=== PATIENT | male | born 1945 ===

== ENCOUNTER 2017-01-22 11:11 | Emergency (ER) | payer MEDICARE, OTHER, BC ==
[2017-01-22 11:24] VITALS: BMI 34.9
[2017-01-22 11:25] VITALS: O2SAT 99
[2017-01-22 11:53] LABS: BASO % 0.8 % (0.0-2.0); EOS # 0.2 K/uL (0.0-0.7); EOS % 3.6 % (0.0-4.0); HEMATOCRIT 28.5 % (35.0-51.0); LYMPH % 15.7 % (20.0-40.0); MEAN CORPUSCULAR HEMOGLOBIN 23.6 pg (27.0-31.0); MEAN CORPUSCULAR HGB CONC 31.9 g/dL (33.0-37.0); MONO # 0.6 K/uL (0.0-0.8); MONO % 8.8 % (0.0-10.0); RED CELL DISTRIBUTION WIDTH 16.9 % (11.5-14.5); WHITE BLOOD COUNT 6.3 K/uL (4.8-10.8)
--- NOTE | 2017-01-22 11:57 | RAD ---
HISTORY: cp COMPARISON: 02/21/2016 FINDINGS: LUNGS: No active pulmonary disease. PLEURA: No significant pleural effusion identified, no pneumothorax apparent. CARDIOVASCULAR: Normal. OSSEOUS STRUCTURES: No significant abnormalities. VISUALIZED UPPER ABDOMEN: Normal. OTHER FINDINGS: None. IMPRESSION: No active disease.
[2017-01-22 12:01] LABS: CHLORIDE 100 mmol/L (98-107)
[2017-01-22 12:02] LABS: POTASSIUM 4.2 mmol/L (3.6-5.2); SODIUM 135 mmol/L (132-148)
[2017-01-22 12:04] LABS: ALB/GLOB RATIO 1.2 (1.0-2.1); ALKALINE PHOSPHATASE 63 U/L (38-126); AST/SGOT 20 U/L (17-59); BILIRUBIN,TOTAL 0.5 mg/dL (0.2-1.3); BLOOD UREA NITROGEN 15 mg/dL (9-20); CARBON DIOXIDE 26 mmol/L (22-30); GFR AFRICAN-AMERICAN > 60; GLUCOSE,RANDOM 221 mg/dL (75-110); TOTAL PROTEIN 6.9 g/dL (6.3-8.3)
[2017-01-22 12:05] LABS: ALT/SGPT 21 U/L (21-72); CALCIUM 8.4 mg/dl (8.6-10.4)
--- NOTE | 2017-01-22 12:56 | C.PDOC ---
History Of Present Illness 71 y/o male presents to the ED with complains of pain to chest area since yesterday. Pt reports bending over yesterday around 1100 and felt a pull in his chest, he has had pain ever since, worse with any movement or coughing. Pt has had dry cough x1 week due to "itchy throat." Has not taken any medications. Denies SOB or any other complaints. Time Seen by Provider: 01/22/17 11:24 Chief Complaint (Nursing): Cough, Cold, Congestion History Per: Patient History/Exam Limitations: no limitations Onset/Duration Of Symptoms: Hrs Current Symptoms Are (Timing): Still Present Severity: Moderate Recent travel outside of the [place]: No Past Medical History Reviewed: Historical Data, Nursing Documentation, Vital Signs Vital Signs: Last Vital Signs Temp 98.8 F 01/22/17 11:24 Pulse 74 01/22/17 11:24 Resp 20 01/22/17 11:24 BP 114/70 01/22/17 11:24 Pulse Ox 99 01/22/17 13:05 - Medical History PMH: CAD, Hiatal Hernia, HTN, Hypercholesterolemia Surgical History: Coronary Stent (PTCA/stent x4) - [facility] Procedures CORONAR ARTERIOGR-2 CATH (01/06/13) INSERTION OF ONE VASCULAR STENT (01/06/13) INSRT OF DRUG-ELUTING CORON ARTERY STENTS(S) (01/06/13) LT HEART ANGIOCARDIOGRAM (01/06/13) PERCUTANEOUS TRANSLUMINAL CORONARY ANGIOPLASTY [PTCA] (01/06/13) PROCEDURE ON SINGLE VESSEL (01/06/13) RT/LEFT HEART CARD CATH (01/06/13) Family History: States: Unknown Family Hx - Social History Hx Alcohol Use: Yes Hx Substance Use: No - Immunization History Hx Tetanus Toxoid Vaccination: No Hx Influenza Vaccination: Yes (05/2015) Hx Pneumococcal Vaccination: No Review Of Systems Except As Marked, All Systems Reviewed And Found Negative. Constitutional: Negative for: Fever Cardiovascular: Positive for: Other (pain to chest area) Respiratory: Positive for: Cough. Negative for: Shortness of Breath Gastrointestinal: Negative for: Vomiting Physical Exam - Physical Exam Appears: Non-toxic, No Acute Distress Skin: Warm, Dry, No Rash Head: Atraumatic, Normacephalic Chest: Symmetrical, Tenderness (lower sternum and zyphoid) Cardiovascular: Rhythm Regular, No Murmur Respiratory: Normal Breath Sounds, No Rales, No Rhonchi, No Wheezing Gastrointestinal/Abdominal: Normal Exam, Soft, No Tenderness Extremity: Normal ROM Extremity: Bilateral: Atraumatic Neurological/Psych: Oriented x3, Normal Speech, Normal Motor, Normal Sensation ED Course And Treatment - Laboratory Results Result Diagrams: 01/22/17 11:49 01/22/17 11:49 ECG: Interpreted By Me, Viewed By Me ECG Rhythm: Sinus Rhythm ECG Interpretation: Normal Interpretation Of ECG: normal axis intervals, no acute ischemia Rate From EC (BPM) O2 Sat by Pulse Oximetry: 99 (room air) Pulse Ox Interpretation: Normal - Other Rad CXR X-Ray: Viewed By Me, Read By Radiologist Interpretation: Accession No. : [id number]. Patient Name / ID : PARISH BELTRAN / [id number]. Exam Date : 01/22/2017 11:38:20 ( Approved ). Study Comment : Sex / Age : M / 71Y. Creator : Trever Weber MD. Dictator : Trever Weber MD. Director Distribution : Administrative Operations Coordinator : Trever Weber MD. Approver2 : Report Date : 01/22/2017 11:56:12. My Comment : . HISTORY: cp. COMPARISON: 02/21/2016. FINDINGS: LUNGS: No active pulmonary disease. PLEURA : No significant pleural effusion identified, no pneumothorax apparent. CARDIOVASCULAR: Normal. OSSEOUS STRUCTURES: No significant abnormalities. VISUALIZED UPPER ABDOMEN: Normal. OTHER FINDINGS: None. IMPRESSION: No active disease. Medical Decision Making Medical Decision Making: Discussed case with patient's safety clothing and equipment developer Dr Shi who can see patient in 1- 3 days for follow up. Disposition - Disposition Referrals: Doris Shi MD [Staff Provider] - Disposition: HOME/ ROUTINE Disposition Time: 13:30 Condition: GOOD Additional Instructions: Please follow up with Dr Shi next week. Return to the ER for any worsening symptoms or for any other concerns. Prescriptions: Naproxen [Naprosyn] 500 mg PO Q12H PRN #6 tablet PRN Reason: Pain, Moderate (4-7) Forms: General Discharge Instructions - Clinical Impression Clinical Impression: Chest pain - Scribe Statement The provider has reviewed the documentation as recorded by the Allie Murray Provider Attestation: All medical record entries made by the Allie were at my direction and personally dictated by me. I have reviewed the chart and agree that the record accurately reflects my personal performance of the history, physical exam, medical decision making, and the department course for this patient. I have also personally directed, reviewed, and agree with the discharge instructions and disposition.
[2017-01-22 13:39] VITALS: BP 113/79; PULSE 67; RESP 18; TEMP 97.9
--- NOTE | 2017-01-26 12:39 | CARD ---
APPROVED REPORT EKG Measurement Heart [id number] <Conclusion> Normal sinus rhythm Normal ECG
== END 2017-01-22 13:39 | disposition home or self-care (01) ==
LOC: C.ER 11:11
DX: R07.89 Other chest pain (principal)
CPT/HCPCS: 71010; 80053; 84484; 85025; 93005; 96374; 99283; J1885

== ENCOUNTER 2017-05-06 13:06 | Emergency (ER) | payer BC, MEDICARE, OTHER ==
[2017-05-06 13:07] VITALS: BMI 34.9
[2017-05-06 13:21] VITALS: BP 120/79; PULSE 80; RESP 18; TEMP 98.3; O2SAT 96
--- NOTE | 2017-05-06 13:56 | C.PDOC ---
History Of Present Illness 71 y/o male with Hx of DM presents to ED with complaints of right knee pain and swelling secondary to pimple for 3 days. Patient reports mild discharge noted and applied vicks to the area with no improvement. Patient denies recent travel , fever, chills, sob, nausea, vomiting, numbness, weakness or any other complaints at this time. Time Seen by Provider: 05/06/17 13:28 Chief Complaint (Nursing): Abnormal Skin Integrity History Per: Patient History/Exam Limitations: no limitations Onset/Duration Of Symptoms: Days Current Symptoms Are (Timing): Still Present Location Of Injury: Right: Knee Quality Of Symptoms: Painful Past Medical History Reviewed: Historical Data, Nursing Documentation, Vital Signs Vital Signs: Last Vital Signs Temp 98.3 F 05/06/17 13:19 Pulse 80 05/06/17 13:19 Resp 18 05/06/17 13:19 BP 120/79 05/06/17 13:19 Pulse Ox 96 05/06/17 14:02 - Medical History PMH: CAD, Hiatal Hernia, HTN, Hypercholesterolemia Surgical History: Coronary Stent (PTCA/stent x4) - [facility] Procedures CORONAR ARTERIOGR-2 CATH (01/06/13) INSERTION OF ONE VASCULAR STENT (01/06/13) INSRT OF DRUG-ELUTING CORON ARTERY STENTS(S) (01/06/13) LT HEART ANGIOCARDIOGRAM (01/06/13) PERCUTANEOUS TRANSLUMINAL CORONARY ANGIOPLASTY [PTCA] (01/06/13) PROCEDURE ON SINGLE VESSEL (01/06/13) RT/LEFT HEART CARD CATH (01/06/13) Family History: States: Unknown Family Hx - Social History Hx Alcohol Use: Yes Hx Substance Use: No - Immunization History Hx Tetanus Toxoid Vaccination: No Hx Influenza Vaccination: Yes (05/2015) Hx Pneumococcal Vaccination: No Review Of Systems Except As Marked, All Systems Reviewed And Found Negative. Constitutional: Negative for: Fever, Chills Gastrointestinal: Negative for: Nausea, Vomiting Musculoskeletal: Positive for: Leg Pain Skin: Negative for: Rash Neurological: Negative for: Weakness, Numbness Physical Exam - Physical Exam Appears: Non-toxic, No Acute Distress Skin: Warm, Dry, Other (3x3cm swelling and redness area with induration to right knee. suspected insect bite) Head: Atraumatic, Normacephalic, No Abrasion Eye(s): bilateral: Normal Inspection Oral Mucosa: Moist Neck: Normal ROM, Supple Chest: Symmetrical Extremity: Normal ROM, Capillary Refill (<2 seconds) Neurological/Psych: Oriented x3, Normal Motor, Normal Sensation ED Course And Treatment O2 Sat by Pulse Oximetry: 96 (RA) Pulse Ox Interpretation: Normal Medical Decision Making Medical Decision Making: Patient reports able to take some pus 2 days ago. Will aspirate to drainage some pus, but no purulent material came out. Patient was instructed to continue applying warm compresses at home and take antibiotics until completed. Return to the ED in 2 days for possible I&D. Disposition - Disposition Referrals: Rashaun Merino MD [Staff Provider] - Disposition: HOME/ ROUTINE Disposition Time: 14:00 Condition: GOOD Additional Instructions: Apply warm compresses to the area 4-5 times per day. Return to the ED in 2 days for possible I&D. Take antibiotics until completed. Prescriptions: Doxycycline Hyclate 100 mg PO BID #19 capsule Instructions: Abscess (GEN) Forms: [employer] (French) - Clinical Impression Clinical Impression: Abscess, Insect bite - PA / GRAPHICS MANAGER / Resident Statement MD/DO has reviewed & agrees with the documentation as recorded. - Scribe Statement The provider has reviewed the documentation as recorded by the Ghislaineibneftali Brewer All medical record entries made by the Allie were at my direction and personally dictated by me. I have reviewed the chart and agree that the record accurately reflects my personal performance of the history, physical exam, medical decision making, and the department course for this patient. I have also personally directed, reviewed, and agree with the discharge instructions and disposition.
--- NOTE | 2017-05-06 13:56 | C.PDOC ---
Time Seen by Provider: 05/06/17 13:28 Chief Complaint (Nursing): Abnormal Skin Integrity Past Medical History Vital Signs: Last Vital Signs Temp 98.3 F 05/06/17 13:19 Pulse 80 05/06/17 13:19 Resp 18 05/06/17 13:19 BP 120/79 05/06/17 13:19 Pulse Ox 96 05/06/17 13:19 - Medical History PMH: CAD, Hiatal Hernia, HTN, Hypercholesterolemia Denies: Chronic Kidney Disease Surgical History: Coronary Stent (PTCA/stent x4) - [facility] Procedures CORONAR ARTERIOGR-2 CATH (01/06/13) INSERTION OF ONE VASCULAR STENT (01/06/13) INSRT OF DRUG-ELUTING CORON ARTERY STENTS(S) (01/06/13) LT HEART ANGIOCARDIOGRAM (01/06/13) PERCUTANEOUS TRANSLUMINAL CORONARY ANGIOPLASTY [PTCA] (01/06/13) PROCEDURE ON SINGLE VESSEL (01/06/13) RT/LEFT HEART CARD CATH (01/06/13) Family History: States: Unknown Family Hx - Social History Hx Alcohol Use: Yes Hx Substance Use: No - Immunization History Hx Tetanus Toxoid Vaccination: No Hx Influenza Vaccination: Yes (05/2015) Hx Pneumococcal Vaccination: No ED Course And Treatment O2 Sat by Pulse Oximetry: 96 Disposition - Disposition Forms: [employer] (Hungarian)
== END 2017-05-06 14:21 | disposition home or self-care (01) ==
LOC: C.ER 13:06
DX: L02.415 Cutaneous abscess of right lower limb (principal); S80.261A Insect bite (nonvenomous), right knee, initial encounter; W57.XXXA Bitten or stung by nonvenomous insect and other nonvenomous arthropods, initial encounter

== ENCOUNTER 2017-10-02 09:51 | Inpatient (IN) | payer MEDICARE, BC ==
[2017-10-02 09:51] VITALS: BMI 34.9
[2017-10-02] MEDS ORDERED: Sodium Chloride 0.9% 1,000 ML IV ONE (10:35)
--- NOTE | 2017-10-02 10:40 | C.PDOC ---
History Of Present Illness 72 yr old male sent to the ER by Dr. Guzman for anemia. Patients hemoglobin was found to be 7. Patient to be admitted to Dr. Merino for further evaluation for GI and cardiac workup. Patient states he had a rectal exam done by Dr. Guzman and was found to be negative for blood. Patient denies fever, chills, chest pain , SOB, nausea, vomiting, abdominal pain, diarrhea, dysuria, weakness or numbness. Time Seen by Provider: 10/02/17 10:15 Chief Complaint (Nursing): Abnormal Labs History Per: Patient History/Exam Limitations: no limitations Onset/Duration Of Symptoms: Days Current Symptoms Are (Timing): Still Present Severity: Mild Recent travel outside of the [place]: No Past Medical History Reviewed: Historical Data, Nursing Documentation, Vital Signs Vital Signs: Last Vital Signs Temp 98 F 10/02/17 09:54 Pulse 99 H 10/02/17 09:54 Resp 18 10/02/17 09:54 BP 124/77 10/02/17 09:54 Pulse Ox 99 10/02/17 13:10 - Medical History PMH: CAD, Hiatal Hernia, HTN, Hypercholesterolemia Surgical History: Coronary Stent (PTCA/stent x4) - [facility] Procedures CORONAR ARTERIOGR-2 CATH (01/06/13) INSERTION OF ONE VASCULAR STENT (01/06/13) INSRT OF DRUG-ELUTING CORON ARTERY STENTS(S) (01/06/13) LT HEART ANGIOCARDIOGRAM (01/06/13) PERCUTANEOUS TRANSLUMINAL CORONARY ANGIOPLASTY [PTCA] (01/06/13) PROCEDURE ON SINGLE VESSEL (01/06/13) RT/LEFT HEART CARD CATH (01/06/13) Family History: States: No Known Family Hx - Social History Hx Alcohol Use: Yes Hx Substance Use: No - Immunization History Hx Tetanus Toxoid Vaccination: No Hx Influenza Vaccination: Yes (05/2015) Hx Pneumococcal Vaccination: No Review Of Systems Except As Marked, All Systems Reviewed And Found Negative. Constitutional: Negative for: Fever, Chills Cardiovascular: Negative for: Chest Pain Respiratory: Negative for: Shortness of Breath Gastrointestinal: Negative for: Nausea, Vomiting, Abdominal Pain, Diarrhea Genitourinary: Negative for: Dysuria Neurological: Negative for: Weakness, Numbness Physical Exam - Physical Exam Appears: Non-toxic, No Acute Distress Skin: Warm, Dry, No Rash Eye(s): bilateral: Normal Inspection, PERRL, EOMI Oral Mucosa: Moist Cardiovascular: Rhythm Regular, No Murmur Respiratory: Normal Breath Sounds, No Rales, No Wheezing Gastrointestinal/Abdominal: Normal Exam, Soft, No Tenderness, No Guarding, No Rebound Extremity: Normal ROM, No Swelling Neurological/Psych: Oriented x3, Normal Speech Gait: Steady ED Course And Treatment - Laboratory Results Result Diagrams: 10/02/17 11:01 10/02/17 11:01 Lab Interpretation: Abnormal ECG: Interpreted By Me ECG Rhythm: Sinus Rhythm ECG Interpretation: Normal Rate From EC O2 Sat by Pulse Oximetry: 99 (RA) Pulse Ox Interpretation: Normal - Radiology CXR: Interpreted by Me CXR Interpretation: Yes: No Acute Disease - Other Rad CXR X-Ray: Viewed By Me, Read By Radiologist Interpretation: HISTORY: SOB. COMPARISON: Comparison chest 01/22/2017 the in in. TECHNIQUE: Chest PA and lateral. FINDINGS: LUNGS: Mild bibasilar atelectasis. PLEURA: No significant pleural effusion identified. No pneumothorax apparent. CARDIOVASCULAR: Heart is enlarged. Aorta ectatic and uncoiled. OSSEOUS STRUCTURES: Multilevel degenerative spondylosis of the thoracic spine with flowing incompletely bridging anterior osteophyte formation consistent with DISH. VISUALIZED UPPER ABDOMEN: Normal. OTHER FINDINGS: None. IMPRESSION: Mild bibasilar atelectasis. Cardiomegaly. Progress Note: Treated with IVF. Case discussed and patient evaluated by Dr Avilez who requests admission and will do ENDO on wednesday. Consult Dr Mercedes Shi Reassessment Condition: Unchanged - Physician Consult Information Physician Contacted: Cyndi Luong Outcome Of Conversation: admit Medical Decision Making Medical Decision Making: PLAN: * CXR * EKG * Labs * Urinalysis * Sodium Chloride IV * * Case discussed with Dr Shi who will consult Disposition Discussed With Dr.: Cyndi Luong Doctor Will See Patient In The: Hospital - Disposition Disposition: HOSPITALIZED Disposition Time: 13:15 Condition: STABLE - POA Present On Arrival: None - Clinical Impression Clinical Impression: Anemia - PA / RIG MECHANIC / Resident Statement MD/DO has reviewed & agrees with the documentation as recorded. - Scribe Statement The provider has reviewed the documentation as recorded by the Scribe Sherry Craft All medical record entries made by the Scribe were at my direction and personally dictated by me. I have reviewed the chart and agree that the record accurately reflects my personal performance of the history, physical exam, medical decision making, and the department course for this patient. I have also personally directed, reviewed, and agree with the discharge instructions and disposition. Decision To Admit - Pt Status Changed To: Hospital Disposition Of: Inpatient - Admit Certification Admit to Inpatient:: After my assessment, the patient will require hospitalization for at least two midnights. This is because of the severity of symptoms shown, intensity of services needed, and/or the medical risk in this patient being treated as an outpatient. - InPatient: Physician Admission Certification: I certify that this patient requires 2 or more midnights of care for the following reason:: symptomatic anemia - . Bed Request Type: Regular Admitting Physician: Cyndi Luong Patient Diagnosis: Anemia
[2017-10-02] MEDS ORDERED: Sodium Chloride 0.9% 1,000 ML ONE (11:06)
[2017-10-02 11:12] LABS: BASO # 0.1 K/uL (0.0-0.2); EOS # 0.2 K/uL (0.0-0.7); EOS % 2.5 % (0.0-4.0); LYMPH # 0.9 K/uL (1.0-4.3); LYMPH % 14.8 % (20.0-40.0); MEAN CELL VOLUME 61.5 fL (80.0-94.0); MEAN CORPUSCULAR HEMOGLOBIN 18.7 pg (27.0-31.0); MEAN CORPUSCULAR HGB CONC 30.3 g/dL (33.0-37.0); MEAN PLATELET VOLUME 6.6 fL (7.2-11.7); MONO # 0.6 K/uL (0.0-0.8); MONO % 9.7 % (0.0-10.0); NEUT # 4.5 K/uL (1.8-7.0); NRBC % 0.1 % (0.0-2.0); RBC 3.76 Mil/uL (4.40-5.90); URINE BILIRUBIN NEGATIVE (NEGATIVE); URINE BLOOD NEGATIVE (NEGATIVE); URINE CLARITY Clear (Clear); URINE COLOR Yellow (YELLOW); URINE GLUCOSE (UA) 3+ mg/dL (Normal); URINE LEUKOCYTE ESTERASE NEG Leu/uL (Negative); URINE NITRATE NEGATIVE (NEGATIVE); URINE PROTEIN NEGATIVE (NEGATIVE); URINE UROBILINOGEN NORMAL mg/dL (0.2-1.0); WHITE BLOOD COUNT 6.2 K/uL (4.8-10.8)
[2017-10-02 11:16] LABS: INR 1.2; PROTHROMBIN TIME 13.2 SECONDS (9.7-12.2)
[2017-10-02 11:18] LABS: ALB/GLOB RATIO 1.2 (1.0-2.1); ALT/SGPT 23 U/L (21-72); AST/SGOT 15 U/L (17-59); BLOOD UREA NITROGEN 16 mg/dL (9-20); CALCIUM 8.9 mg/dl (8.6-10.4); GFR AFRICAN-AMERICAN > 60; GFR NON-AFRICAN AMERICAN > 60
--- NOTE | 2017-10-02 11:53 | CP.PCM.CON ---
History of Present Illness - History of Present Illness History of Present Illness: Asked by hospitalist team for a GI consultation on this patient. 72 year old male with history of DM, HTN, CAD s/p stent on plavix who was sent to hospital for evaluation of severe progressive symptomatic anemia. He reports feeling more fatigued and tired for the past 3 months even with minimal exercise such as walking one flight of stairs. He also reports increased constipation recently but denies abdominal pain, nausea, vomiting, diarrhea, fever/chills, or weight loss. He had a colonoscopy 5 years previously which showed a "few" polyps as per patient. Social history: former smoker, social ETOH use Family history: brother (stomach cancer) Review of Systems - Review of Systems Review of Systems: - All other comprehensive 12 point review of systems performed, negative - Constitutional Constitutional: Fatigue, Lethargy - Cardiovascular Cardiovascular: Dyspnea on Exertion - Respiratory Respiratory: absent: Cough, Dyspnea, Hemoptysis, Dyspnea on Exertion, Wheezing, Snoring, Stridor, Pain on Inspiration, Chest Congestion, Excessive Mucous Production, Change in Mucous Color, Pain with Coughing, Other - Gastrointestinal Gastrointestinal: absent: Abdominal Pain, Belching, Bloating, Change in Bowel Habits, Change in Stool Character, Coffee Ground Emesis, Constipation, Cramping , Diarrhea, Dyspepsia, Dysphagia, Early Satiety, Excessive Flatus, Fecal Incontinence, Heartburn, Hematemesis, Hematochezia, Loose Stools, Melena, Nausea , Odynophagia, Temesmus, Vomiting, Other - Musculoskeletal Musculoskeletal: absent: Abnormal Gait, Arthralgias, Atrophy, Back Pain, Deformity, Joint Swelling, Limited Range of Motion, Loss of Height, Muscle Cramps, Muscle Weakness, Myalgias, Neck Pain, Numbness, Radiating Pain into Limb , Stiffness, Tingling, Other - Neurological Neurological: absent: Abnormal Gait, Abnormal Hearing, Abnormal Movements, Abnormal Speech, Behavioral Changes, Burning Sensations, Confusion, Convulsions , Disequilibrium, Dizziness, Numbness, Focal Weakness, Frequent Falls, Headaches , Lack of Coordination, Loss of Vision, Memory Loss, Paresthesias, Radicular Pain, Restless Legs, Sensory Deficit, Syncope, Tingling, Tremor, Vertigo, Weakness, Other Visual Disturbances, Other Past Patient History - Infectious Disease Hx of Infectious Diseases: None - Past Medical History & Family History Past Medical History?: Yes - Past Social History Smoking Status: Former Smoker - CARDIAC Hx Hypercholesterolemia: Yes Hx Hypertension: Yes - PULMONARY Hx Respiratory Disorders: No - NEUROLOGICAL Hx Neurological Disorder: No - HEENT Hx HEENT Problems: No - RENAL Hx Chronic Kidney Disease: No - ENDOCRINE/METABOLIC Hx Endocrine Disorders: Yes Hx Diabetes Mellitus Type 2: Yes - HEMATOLOGICAL/ONCOLOGICAL Hx Blood Disorders: No - INTEGUMENTARY Hx Dermatological Problems: No - MUSCULOSKELETAL/RHEUMATOLOGICAL Hx Musculoskeletal Disorders: No Hx Falls: No - GASTROINTESTINAL Hx Gastrointestinal Disorders: No - GENITOURINARY/GYNECOLOGICAL Hx Genitourinary Disorders: Yes Other/Comment: 'prostate problems' - PSYCHIATRIC Hx Substance Use: No - SURGICAL HISTORY Hx Coronary Stent: Yes (PTCA/stent x4) - ANESTHESIA Hx Anesthesia: Yes Hx Anesthesia Reactions: No Meds Allergies/Adverse Reactions: Allergies Allergy/AdvReac Type Severity Reaction Status Date / Time No Known Allergies Allergy Verified 10/02/17 10:08 Physical Exam - Constitutional Appears: Non-toxic, No Acute Distress - Head Exam Head Exam: NORMAL INSPECTION - Eye Exam Eye Exam: EOMI, Normal appearance - ENT Exam ENT Exam: Mucous Membranes Moist - Respiratory Exam Respiratory Exam: Clear to Auscultation Bilateral - Cardiovascular Exam Cardiovascular Exam: REGULAR RHYTHM, +S1, +S2 - GI/Abdominal Exam GI & Abdominal Exam: Normal Bowel Sounds, Soft Additional comments: non tender to palpation in four quadrants +umbilical hernia no palpable hepato/splenomegaly - Extremities Exam Extremities exam: Positive for: normal inspection - Neurological Exam Neurological exam: Alert, CN II-XII Intact, Normal Gait, Oriented x3, Reflexes Normal - Psychiatric Exam Psychiatric exam: Normal Affect, Normal Mood - Skin Skin Exam: Dry, Intact, Normal Color, Warm Results - Vital Signs Recent Vital Signs: Last Vital Signs Temp 98 F 10/02/17 09:54 Pulse 99 H 10/02/17 09:54 Resp 18 10/02/17 09:54 BP 124/77 10/02/17 09:54 Pulse Ox 99 10/02/17 10:48 - Labs Result Diagrams: 10/02/17 11:01 10/02/17 11:01 Labs: Laboratory Results - last 24 hr 10/02/17 10/02/17 10/02/17 11:01 11:01 11:01 WBC 6.2 RBC 3.76 L Hgb 7.0 L D Hct 23.1 L MCV 61.5 L D MCH 18.7 L MCHC 30.3 L RDW 19.0 H Plt Count 383 MPV 6.6 L Neut % (Auto) 72.0 Lymph % (Auto) 14.8 L Hinds % (Auto) 9.7 Eos % (Auto) 2.5 Baso % (Auto) 1.0 Neut # (Auto) 4.5 Lymph # (Auto) 0.9 L Hinds # (Auto) 0.6 Eos # (Auto) 0.2 Baso # (Auto) 0.1 Sodium 138 Potassium 4.1 Chloride 101 Carbon Dioxide 28 Anion Gap 14 BUN 16 Creatinine 0.9 Est GFR ( Amer) > 60 Est GFR (Non-Af Amer) > 60 Random Glucose 160 H Calcium 8.9 Total Bilirubin 0.4 AST 15 L ALT 23 Alkaline Phosphatase 68 Total Protein 7.3 Albumin 4.0 Globulin 3.2 Albumin/Globulin Ratio 1.2 Urine Color Yellow Urine Clarity Clear Urine pH 5.0 Ur Specific [place] 1.022 Urine Protein Negative Urine Glucose (UA) 3+ H Urine Ketones Negative Urine Blood Negative Urine Nitrate Negative Urine Bilirubin Negative Urine Urobilinogen Normal Ur Leukocyte Esterase Neg Urine WBC (Auto) 1 Urine RBC (Auto) < 1 Assessment & Plan - Assessment and Plan (Free Text) Assessment: CAD s/p stent on plavix DM HTN Progressive, symptomatic microcytic anemia (baseline Hb from September 2016 10.4) Nuclear stress test from January 2017 - normal Plan: - Full liquid diet - Obtain iron studies - Suggest 1 unit PRBC transfusion and continued observation - Cardiology consultation with Dr. Shi given dyspnea on exertion with underlying cardiac disease - Plavix currently being held, pending patient clinical progress and medical optimization will plan for EGD/colonoscopy on wednesday for further evaluation and rule out gastrointestinal source of progressive anemia - Will continue to monitor patient clinical course
--- NOTE | 2017-10-02 12:25 | RAD ---
HISTORY: SOB COMPARISON: Comparison chest 01/22/2017 the in in TECHNIQUE: Chest PA and lateral FINDINGS: LUNGS: Mild bibasilar atelectasis PLEURA: No significant pleural effusion identified. No pneumothorax apparent. CARDIOVASCULAR: Heart is enlarged. Aorta ectatic and uncoiled. OSSEOUS STRUCTURES: Multilevel degenerative spondylosis of the thoracic spine with flowing incompletely bridging anterior osteophyte formation consistent with DISH VISUALIZED UPPER ABDOMEN: Normal. OTHER FINDINGS: None. IMPRESSION: Mild bibasilar atelectasis Cardiomegaly.
--- NOTE | 2017-10-02 14:35 | CP.PCM.HP ---
<Gabriella SpencerDiane - Last Filed: 10/02/17 20:17> History of Present Illness - History of Present Illness History of Present Illness: HPI: Patient is a 72 year old male with a past medical history of HTN, HLD, DM, [place], bells palsy, CAD with 3 stents, who presents to the ED sent by PMD and GI for low hemoglobin. Patient went to Dr. Merino's office for his 6 month follow up who sent him to GI for a low hemoglobin. GI then send the patient to the ED for symptomatic anemia. Patient reports feeling tired and weak in the morning for the past 3-4 months. He also reports fell 3 months ago, and does not know how it happened, but woke up on the floor with blood on his forehead. Patient also reports dyspnea on exertion after 5 steps for the past 3 months. Patient denies blood in stool, dizziness, fevers, headaches, vision changes, chest pain , palpitations, cough, abdominal pain, n/v/d, and dysuria. 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 Allergies: NKDA Medications: See EMR Present on Admission - Present on Admission Any Indicators Present on Admission: No Review of Systems - Constitutional Constitutional: Fatigue, Weakness. absent: Excessive Sweating, Fever, Frequent Falls, Headache, Night Sweats, Weight Gain, Weight Loss - EENT Eyes: absent: Change in Vision Ears: absent: Dizziness Nose/Mouth/Throat: absent: Dysphagia, Sore Throat - Cardiovascular Cardiovascular: Dyspnea, Dyspnea on Exertion. absent: Chest Pain, Lightheadedness, Palpitations - Respiratory Respiratory: Dyspnea, Dyspnea on Exertion. absent: Cough, Hemoptysis - Gastrointestinal Gastrointestinal: Constipation. absent: Abdominal Pain, Diarrhea, Nausea, Vomiting - Genitourinary Genitourinary: absent: Change in Urinary Stream, Dysuria, Hematuria, Pyuria - Neurological Neurological: Weakness. absent: Dizziness, Headaches - Endocrine Endocrine: Fatigue. absent: Palpitations - Hematologic/Lymphatic Hematologic: Easy Bleeding, Easy Bruising Past Patient History - Infectious Disease Hx of Infectious Diseases: None - Past Medical History & Family History Past Medical History?: Yes - Past Social History Smoking Status: Former Smoker - CARDIAC Hx Hypercholesterolemia: Yes Hx Hypertension: Yes - PULMONARY Hx Respiratory Disorders: No - NEUROLOGICAL Hx Neurological Disorder: No - HEENT Hx HEENT Problems: No - RENAL Hx Chronic Kidney Disease: No - ENDOCRINE/METABOLIC Hx Endocrine Disorders: Yes Hx Diabetes Mellitus Type 2: Yes - HEMATOLOGICAL/ONCOLOGICAL Hx Blood Disorders: No - INTEGUMENTARY Hx Dermatological Problems: No - MUSCULOSKELETAL/RHEUMATOLOGICAL Hx Musculoskeletal Disorders: No Hx Falls: No - GASTROINTESTINAL Hx Gastrointestinal Disorders: No - GENITOURINARY/GYNECOLOGICAL Hx Genitourinary Disorders: Yes Other/Comment: 'prostate problems' - PSYCHIATRIC Hx Substance Use: No - SURGICAL HISTORY Hx Coronary Stent: Yes (PTCA/stent x4) - ANESTHESIA Hx Anesthesia: Yes Hx Anesthesia Reactions: No Meds Allergies/Adverse Reactions: Allergies Allergy/AdvReac Type Severity Reaction Status Date / Time No Known Allergies Allergy Verified 10/02/17 10:08 Physical Exam - Constitutional Appears: No Acute Distress - Head Exam Head Exam: ATRAUMATIC, NORMAL INSPECTION - Eye Exam Eye Exam: EOMI, Normal appearance - ENT Exam ENT Exam: Mucous Membranes Moist - Respiratory Exam Respiratory Exam: Clear to Auscultation Bilateral, NORMAL BREATHING PATTERN. absent: Rales, Rhonchi, Wheezes, Respiratory Distress - Cardiovascular Exam Cardiovascular Exam: REGULAR RHYTHM, +S1, +S2 - GI/Abdominal Exam GI & Abdominal Exam: Hernia (umbilical; scar from previous repair), Normal Bowel Sounds, Soft, Tenderness (with deep palpation- epigastric/right upper). absent: Distended, Firm - Extremities Exam Extremities exam: Positive for: normal inspection, pedal pulses present. Negative for: pedal edema - Neurological Exam Neurological exam: Alert, Oriented x3 Additional comments: Right sided facial droop (reyes's palsy) - Psychiatric Exam Psychiatric exam: Normal Affect, Normal Mood - Skin Skin Exam: Dry, Intact, Normal Color, Warm Results - Vital Signs Recent Vital Signs: Last Vital Signs Temp 98.5 F 10/02/17 13:24 Pulse 66 10/02/17 13:24 Resp 70 H 10/02/17 13:24 BP 115/68 10/02/17 13:24 Pulse Ox 99 10/02/17 13:24 - Labs Result Diagrams: 10/02/17 11:01 10/02/17 11:01 Labs: Laboratory Results - last 24 hr 10/02/17 10/02/17 10/02/17 11:01 11:01 11:01 WBC 6.2 RBC 3.76 L Hgb 7.0 L D Hct 23.1 L MCV 61.5 L D MCH 18.7 L MCHC 30.3 L RDW 19.0 H Plt Count 383 MPV 6.6 L Neut % (Auto) 72.0 Lymph % (Auto) 14.8 L [place] % (Auto) 9.7 Eos % (Auto) 2.5 Baso % (Auto) 1.0 Neut # (Auto) 4.5 Lymph # (Auto) 0.9 L [place] # (Auto) 0.6 Eos # (Auto) 0.2 Baso # (Auto) 0.1 Differential Comment PT INR Sodium 138 Potassium 4.1 Chloride 101 Carbon Dioxide 28 Anion Gap 14 BUN 16 Creatinine 0.9 Est GFR ( Amer) > 60 Est GFR (Non-Af Amer) > 60 Random Glucose 160 H Calcium 8.9 Total Bilirubin 0.4 AST 15 L ALT 23 Alkaline Phosphatase 68 Total Protein 7.3 Albumin 4.0 Globulin 3.2 Albumin/Globulin Ratio 1.2 Urine Color Yellow Urine Clarity Clear Urine pH 5.0 Ur Specific [place] 1.022 Urine Protein Negative Urine Glucose (UA) 3+ H Urine Ketones Negative Urine Blood Negative Urine Nitrate Negative Urine Bilirubin Negative Urine Urobilinogen Normal Ur Leukocyte Esterase Neg Urine WBC (Auto) 1 Urine RBC (Auto) < 1 Stool Occult Blood Blood Type Blood Type Confirm Antibody Screen 10/02/17 10/02/17 10/02/17 11:01 11:01 12:16 WBC RBC Hgb Hct MCV MCH MCHC RDW Plt Count MPV Neut % (Auto) Lymph % (Auto) [place] % (Auto) Eos % (Auto) Baso % (Auto) Neut # (Auto) Lymph # (Auto) [place] # (Auto) Eos # (Auto) Baso # (Auto) Differential Comment PT 13.2 H INR 1.2 Sodium Potassium Chloride Carbon Dioxide Anion Gap BUN Creatinine Est GFR ( Amer) Est GFR (Non-Af Amer) Random Glucose Calcium Total Bilirubin AST ALT Alkaline Phosphatase Total Protein Albumin Globulin Albumin/Globulin Ratio Urine Color Urine Clarity Urine pH Ur Specific [place] Urine Protein Urine Glucose (UA) Urine Ketones Urine Blood Urine Nitrate Urine Bilirubin Urine Urobilinogen Ur Leukocyte Esterase Urine WBC (Auto) Urine RBC (Auto) Stool Occult Blood Negative Blood Type A POSITIVE Blood Type Confirm A POSITIVE Antibody Screen Negative Assessment & Plan (1) Anemia Assessment and Plan: Hgb 7 at admission * Stool occult negative * GI consulted, Dr. Avilez, help appreciated * Type and cross * 1 PRBC transfused * Follow AM labs, H/H * Iron studies: f/u * Tentatively planned for endoscopy on Wednesday * needs cardiac clearance Status: Acute (2) Diabetes Assessment and Plan: Patient reports having "Borderline Diabetes" * Home med: Metformin 500mg PO Daily- HOLD * ISS, hypoglycemia protocol * A1c: f/u * Accuchecks * Continue to monitor Status: Acute (3) CAD (coronary artery disease) Assessment and Plan: Hx of CAD, 3 stents * Cardiology consulted, Dr. 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 Hold Plavix * Echo: f/u results Status: Acute (4) HTN (hypertension) Assessment and Plan: Continue home med: Metoprolol 50mg PO daily, Lisinopril 5mg PO daily Continue to monitor vitals Status: Acute (5) Hypercholesterolemia Assessment and Plan: Continue home med: Crestor 10mg PO HS Status: Acute (6) Abdominal pain Assessment and Plan: Abdomen/Pelvis CT w/PO+IV: f/u results Status: Acute (7) Prophylactic measure Assessment and Plan: SCDs; No chemical anticoagulation; Hold Plavix Protonix 40mg PO daily Liquid Diet Status: Acute <Cyndi Luong - Last Filed: 10/06/17 21:09> Results - Vital Signs Recent Vital Signs: Last Vital Signs Temp 98.6 F 10/05/17 07:20 Pulse 84 10/05/17 12:39 Resp 20 10/05/17 07:20 BP 95/60 L 10/05/17 07:20 Pulse Ox 97 10/05/17 12:39 - Labs Result Diagrams: 10/05/17 07:51 10/05/17 07:51 Attending/Attestation - Attestation I have personally seen and examined this patient.: Yes I have fully participated in the care of the patient.: Yes I have reviewed all pertinent clinical information: Yes Notes (Text): Seen and examined I agree with thedocumentation of the assessment and the plan 10/06/17 21:09
[2017-10-02 15:56] LABS: % IRON SATURATION 2.6 (20-55); IRON < 10 ug/dL (49-181); TOTAL IRON BINDING CAPACITY 381 ug/dL (250-450)
[2017-10-02] MEDS: (Novolin R) Insulin Human Regular 100 units/ml vial SC SCH ×2 (16:19→21:22)
[2017-10-02] MEDS ORDERED: Iohexol 240 (50 ml) ONE (16:44)
[2017-10-02] MEDS ORDERED: Iodixanol 320 MG/ML 100 ML BOTTLE IV ONE (17:39)
--- NOTE | 2017-10-02 19:44 | CT ---
EXAM: CT Abdomen and Pelvis With Intravenous Contrast EXAM DATE/TIME: Exam ordered 10/02/2017 2:31 PM CLINICAL HISTORY: 72 years old, male; Pain; Abdominal pain; Generalized; Additional info: Abdominal pain, anemia TECHNIQUE: Axial computed tomography images of the abdomen and pelvis with intravenous contrast. All CT scans at this facility use one or more dose reduction techniques, viz.: automated exposure control; ma/kV adjustment per patient size (including targeted exams where dose is matched to indication; i.e. head); or iterative reconstruction technique. Coronal and sagittal reformatted images were created and reviewed. CONTRAST: 100 mL of [id number] administered intravenously. COMPARISON: CT - ABD PELVIS W/O PO OR IV CONT 2015-12-07 13:09 FINDINGS: Lower thorax: There is a a small hiatal hernia. ABDOMEN: Liver: There is a 5 mm low density lesion in the medial segment left lobe of the liver near the dome with a density measurement of 19 H. This suggests the presence of a hepatic cyst. Gallbladder and bile ducts: Unremarkable. No calcified stones. No ductal dilation. Pancreas: Unremarkable. No mass. No ductal dilation. Spleen: There is a 6 mm accessory spleen noted lateral and superior to the spleen. Adrenals: Unremarkable. No mass. Kidneys and ureters: A 1.1 cm cyst is noted in the lower pole right kidney.A 3 mm nonobstructing calcification is noted midportion of the right kidney. Stomach and bowel: There is a large amount of stool in the colon. Appendix: No findings to suggest acute appendicitis. PELVIS: Bladder: Unremarkable. No mass. Reproductive: The prostate is enlarged and contains calcifications. The prostate measures 5.6 x 7.2 by 6 cm. ABDOMEN and PELVIS: Intraperitoneal space: Unremarkable. No free air. No significant fluid collection. Bones/joints: Abnormal density of the L4 vertebral body is suggestive of the presence of a vertebral hemangioma. This is unchanged from previous. No acute fracture. No dislocation. Soft tissues: There is a left inguinal hernia containing fat. There is a small paraumbilical hernia containing fat. There is minimal stranding noted of the herniated fat segment. Surgical clips are noted along the anterior peritoneal surface above the umbilicus. There are bilateral hydroceles. Vasculature: Unremarkable. No abdominal aortic aneurysm. Lymph nodes: Unremarkable. No enlarged lymph nodes. IMPRESSION: 1. Large amount of stool within the colon. 2. Hepatic cyst. 3. Renal cyst. 4. Nonobstructing 3 mm calcification in the midportion the left kidney. 5. Enlarged prostate. No change from previous. Correlate with serum PSA. 6. Vertebral hemangioma at L4. No change.
[2017-10-03] MEDS: (Novolin R) Insulin Human Regular 100 units/ml vial SC SCH ×4 (08:04→22:23)
--- NOTE | 2017-10-03 08:48 | CP.PCM.PN ---
<Demetrio Duarte - Last Filed: 10/03/17 13:07> Subjective - Date & Time of Evaluation Date of Evaluation: 10/03/17 Time of Evaluation: 08:15 - Subjective Subjective: PGY4 Go Follow-up No complaints denies any episodes of Gi bleed overnight Denies any abd pain Tolerating liquids schduled for colonoscopy tomorrow ROS: 10 point ROS conducted neg other than above Objective - Vital Signs/Intake and Output Vital Signs (last 24 hours): Temp Pulse Resp BP Pulse Ox 99.5 F 87 20 113/61 97 10/03/17 01:59 10/03/17 00:16 10/03/17 00:16 10/03/17 00:16 10/03/17 00:16 Intake and Output: 10/03/17 10/03/17 06:59 18:59 Output Total 500 Balance -500 - Medications Medications: Current Medications Bisacodyl (Dulcolax) 5 mg PO ONCE ONE Stop: 10/03/17 17:01 Finasteride (Proscar) 5 mg PO DAILY [facility] Insulin Human Regular (Novolin R) 0 unit [facility] PRN Reason: Protocol Last Admin: 10/03/17 08:04 Dose: Not Given Lisinopril (Zestril) 5 mg PO DAILY [facility] Metoprolol Succinate (Toprol Xl) 50 mg PO DAILY [facility] Pantoprazole Sodium (Protonix Ec Tab) 40 mg PO DAILY [facility] Polyethylene Glycol/Electrolytes (Golytely) 4,000 ml PO ONCE ONE Stop: 10/03/17 14:01 Rosuvastatin Calcium (Crestor) 10 mg PO [facility] Last Admin: 10/02/17 21:52 Dose: 10 mg Tamsulosin HCl (Flomax) 0.4 mg PO DAILY [facility] - Labs Labs: 10/02/17 11:01 10/02/17 11:01 PT 13.2 SECONDS (9.7-12.2) H 10/02/17 11:01 INR 1.2 10/02/17 11:01 - Constitutional Appears: Well, No Acute Distress - Head Exam Head Exam: ATRAUMATIC, NORMOCEPHALIC - Eye Exam Eye Exam: Normal appearance - ENT Exam ENT Exam: Mucous Membranes Moist, Normal Exam - Respiratory Exam Respiratory Exam: Clear to Ausculation Bilateral, NORMAL BREATHING PATTERN. absent: Rales, Rhonchi, Wheezes, Respiratory Distress - Cardiovascular Exam Cardiovascular Exam: REGULAR RHYTHM, +S1, +S2 - GI/Abdominal Exam GI & Abdominal Exam: Soft, Normal Bowel Sounds. absent: Guarding, Rigid, Tenderness, Rebound - Extremities Exam Extremities Exam: absent: Joint Swelling, Pedal Edema - Neurological Exam Neurological Exam: Alert, Awake, Oriented x3 - Psychiatric Exam Psychiatric exam: Normal Affect, Normal Mood - Skin Skin Exam: Dry, Intact, Normal Color, Warm Assessment and Plan - Assessment and Plan (Free Text) Assessment: Salazar Dunne is a 72M w/ hx of CAD s/p stent on plvix, DM, HTN who presents to the ER for progressive microcytic anemia CAD s/p stent on plavix DM HTN Progressive, symptomatic microcytic anemia (baseline Hb from September 2016 10.4) Nuclear stress test from January 2017 - normal Plan: - clear liquid diet - Obtain iron studies - s/p 1 unit PRBC - Cardiology consultation with Dr. Shi given dyspnea on exertion with underlying cardiac disease - Plavix currently being held, -EGD and colonoscopy scheduled for tomorrow -NPO after midnight -Start prep today - Will continue to monitor patient clinical course d/w Dr. garcia <Angel BHATIA,Keegan - Last Filed: 10/03/17 15:09> Objective - Vital Signs/Intake and Output Vital Signs (last 24 hours): Temp Pulse Resp BP Pulse Ox 98.1 F 85 18 115/70 94 L 10/03/17 14:52 10/03/17 14:52 10/03/17 14:52 10/03/17 14:52 10/03/17 07:55 Intake and Output: 10/03/17 10/03/17 06:59 18:59 Intake Total 0 Output Total 500 Balance -500 0 - Medications Medications: Current Medications Bisacodyl (Dulcolax) 5 mg PO ONCE ONE Stop: 10/03/17 17:01 Finasteride (Proscar) 5 mg PO DAILY [facility] Last Admin: 10/03/17 09:44 Dose: 5 mg Insulin Human Regular (Novolin R) 0 unit [facility] PRN Reason: Protocol Last Admin: 10/03/17 13:42 Dose: 2 unit Lisinopril (Zestril) 5 mg PO DAILY [facility] Last Admin: 10/03/17 09:46 Dose: Not Given Metoprolol Succinate (Toprol Xl) 50 mg PO DAILY [facility] Last Admin: 10/03/17 09:46 Dose: 50 mg Pantoprazole Sodium (Protonix Ec Tab) 40 mg PO DAILY [facility] Last Admin: 10/03/17 09:44 Dose: 40 mg Polyethylene Glycol/Electrolytes (Golytely) 2,000 ml PO ONCE ONE Stop: 10/04/17 04:01 Rosuvastatin Calcium (Crestor) 10 mg PO HS [facility] Last Admin: 10/02/17 21:52 Dose: 10 mg Tamsulosin HCl (Flomax) 0.4 mg PO DAILY [facility] Last Admin: 10/03/17 09:44 Dose: 0.4 mg - Labs Labs: 10/03/17 09:12 10/03/17 08:38 PT 13.2 SECONDS (9.7-12.2) H 10/02/17 11:01 INR 1.2 10/02/17 11:01 Attending/Attestation - Attestation I have personally seen and examined this patient.: Yes I have fully participated in the care of the patient.: Yes I have reviewed all pertinent clinical information, including history, physical exam and plan: Yes Notes (Text): 10/03/17 14:55 Patient seen with Gi fellow on rounds. This is a 72 yr old M with CAD s/p stent on plavix, DM, HTN presenting with progressive, symptomatic microcytic anemia ( baseline Hb from September 2016 10.4). Nuclear stress test from January 2017 - normal. Hemodynamically stable. Plavix on hold. Scheduled for EGD/colonoscopy tomorrow. Will start early prep today as patient had oatmeal this morning and then give another 2 lts in am at 4 am. Clear liquid diet and NPO past midnight.
--- NOTE | 2017-10-03 08:57 | CP.PCM.PN ---
<Gabriella Spencer - Last Filed: 10/03/17 12:52> Subjective - Date & Time of Evaluation Date of Evaluation: 10/03/17 Time of Evaluation: 08:53 - Subjective Subjective: Medicine progress note for Dr. Luong's service Patient was seen and examined at bedside in no acute distress. Patient was sleeping comfortably in bed. Patient reports having a mild headache sometimes, but otherwise feels better. Patient reports no acute events s/p transfusion. Patient denies chest pain, abdominal pain, nausea, vomiting, fevers, shortness of breath. Objective - Vital Signs/Intake and Output Vital Signs (last 24 hours): Temp Pulse Resp BP Pulse Ox 99.5 F 87 20 113/61 97 10/03/17 01:59 10/03/17 00:16 10/03/17 00:16 10/03/17 00:16 10/03/17 00:16 Intake and Output: 10/03/17 10/03/17 06:59 18:59 Output Total 500 Balance -500 - Medications Medications: Current Medications Bisacodyl (Dulcolax) 5 mg PO ONCE ONE Stop: 10/03/17 17:01 Finasteride (Proscar) 5 mg PO DAILY [facility] Insulin Human Regular (Novolin R) 0 unit [facility] PRN Reason: Protocol Last Admin: 10/03/17 08:04 Dose: Not Given Lisinopril (Zestril) 5 mg PO DAILY [facility] Metoprolol Succinate (Toprol Xl) 50 mg PO DAILY [facility] Pantoprazole Sodium (Protonix Ec Tab) 40 mg PO DAILY [facility] Polyethylene Glycol/Electrolytes (Golytely) 4,000 ml PO ONCE ONE Stop: 10/03/17 14:01 Rosuvastatin Calcium (Crestor) 10 mg PO [facility] Last Admin: 10/02/17 21:52 Dose: 10 mg Tamsulosin HCl (Flomax) 0.4 mg PO DAILY [facility] - Labs Labs: 10/02/17 11:01 10/02/17 11:01 PT 13.2 SECONDS (9.7-12.2) H 10/02/17 11:01 INR 1.2 10/02/17 11:01 - Additional Findings Additional findings: - Constitutional Appears: No Acute Distress - Head Exam Head Exam: ATRAUMATIC, NORMAL INSPECTION - Eye Exam Eye Exam: EOMI, Normal appearance - ENT Exam ENT Exam: Mucous Membranes Moist - Respiratory Exam Respiratory Exam: Clear to Auscultation Bilateral, NORMAL BREATHING PATTERN. absent: Rales, Rhonchi, Wheezes, Respiratory Distress - Cardiovascular Exam Cardiovascular Exam: REGULAR RHYTHM, +S1, +S2 - GI/Abdominal Exam GI & Abdominal Exam: Hernia (umbilical; scar from previous repair), Normal Bowel Sounds, Soft, Tenderness (with deep palpation- epigastric/right upper). absent: Distended, Firm - Extremities Exam Extremities exam: Positive for: normal inspection, pedal pulses present. Negative for: pedal edema - Neurological Exam Neurological exam: Alert, Oriented x3 Additional comments: Right sided facial droop (reyes's palsy) - Psychiatric Exam Psychiatric exam: Normal Affect, Normal Mood - Skin Skin Exam: Dry, Intact, Normal Color, Warm Assessment and Plan (1) Anemia Status: Acute (2) Diabetes Status: Acute (3) CAD (coronary artery disease) Status: Acute (4) HTN (hypertension) Status: Acute (5) Hypercholesterolemia Status: Acute (6) Abdominal pain Status: Acute (7) Prophylactic measure Status: Acute - Assessment and Plan (Free Text) Plan: Assessment & Plan (1) Anemia Assessment and Plan: Hgb 7 at admission * Stool occult negative * GI consulted, Dr. Avilez, help appreciated * Type and cross * 1 PRBC transfused on 10/02 * Hgb increased 7.5, will transfused 1 additional unit of PRBC on 10/03/17 * Follow AM labs, H/H * Iron studies ordered by GI: iron <10, TIBC 381, %sat 2.6 * Tentatively planned for colonscopy/endoscopy on Wednesday (2) Diabetes Assessment and Plan: Patient reports having "Borderline Diabetes" * Home med: Metformin 500mg PO Daily- HOLD * ISS, hypoglycemia protocol * A1c: f/u * Accuchecks * Continue to monitor (3) CAD (coronary artery disease) Assessment and Plan: Hx of CAD, 3 stents * Cardiology consulted, Dr. 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 Hold Plavix * Echo: f/u results (4) HTN (hypertension) Assessment and Plan: Continue home med: Metoprolol 50mg PO daily, Lisinopril 5mg PO daily Continue to monitor vitals (5) Hypercholesterolemia Assessment and Plan: Continue home med: Crestor 10mg PO HS (6) Abdominal pain Assessment and Plan: Abdomen/Pelvis CT w/PO+IV: large amount of stool within colon; hepatic cyst; renal cyst; nonobstructing 3mm calcification in midportion of left kidney; enlarge prostate (no change from previous); vertebral hemangioma at L4. (7) Prophylactic measure Assessment and Plan: SCDs; No chemical anticoagulation; Hold Plavix Protonix 40mg PO daily Liquid Diet <Cyndi Luong - Last Filed: 10/03/17 15:40> Objective - Vital Signs/Intake and Output Vital Signs (last 24 hours): Temp Pulse Resp BP Pulse Ox 98.7 F 86 18 105/69 94 L 10/03/17 15:22 10/03/17 15:22 10/03/17 15:22 10/03/17 15:22 10/03/17 07:55 Intake and Output: 10/03/17 10/03/17 06:59 18:59 Intake Total 0 Output Total 500 Balance -500 0 - Medications Medications: Current Medications Bisacodyl (Dulcolax) 5 mg PO ONCE ONE Stop: 10/03/17 17:01 Finasteride (Proscar) 5 mg PO DAILY [facility] Last Admin: 10/03/17 09:44 Dose: 5 mg Insulin Human Regular (Novolin R) 0 unit [facility] PRN Reason: Protocol Last Admin: 10/03/17 13:42 Dose: 2 unit Lisinopril (Zestril) 5 mg PO DAILY [facility] Last Admin: 10/03/17 09:46 Dose: Not Given Metoprolol Succinate (Toprol Xl) 50 mg PO DAILY [facility] Last Admin: 10/03/17 09:46 Dose: 50 mg Pantoprazole Sodium (Protonix Ec Tab) 40 mg PO DAILY [facility] Last Admin: 10/03/17 09:44 Dose: 40 mg Polyethylene Glycol/Electrolytes (Golytely) 2,000 ml PO ONCE ONE Stop: 10/04/17 04:01 Rosuvastatin Calcium (Crestor) 10 mg PO HS [facility] Last Admin: 10/02/17 21:52 Dose: 10 mg Tamsulosin HCl (Flomax) 0.4 mg PO DAILY [facility] Last Admin: 10/03/17 09:44 Dose: 0.4 mg - Labs Labs: 10/03/17 09:12 10/03/17 08:38 PT 13.2 SECONDS (9.7-12.2) H 10/02/17 11:01 INR 1.2 10/02/17 11:01 Attending/Attestation - Attestation I have personally seen and examined this patient.: Yes I have fully participated in the care of the patient.: Yes I have reviewed all pertinent clinical information, including history, physical exam and plan: Yes Notes (Text): Seen and examined no complain continue blood transfusion,follow cardio recommendation EGD and colonoscopy on wednesday I agree with the resident's documentation of the assessment and the plan 10/03/17 15:38
[2017-10-03 09:19] LABS: ALB/GLOB RATIO 1.1 (1.0-2.1); ALBUMIN 3.6 g/dL (3.5-5.0); ALT/SGPT 30 U/L (21-72); AST/SGOT 18 U/L (17-59); BLOOD UREA NITROGEN 8 mg/dL (9-20); CALCIUM 8.6 mg/dl (8.6-10.4); GFR AFRICAN-AMERICAN > 60; GFR NON-AFRICAN AMERICAN > 60
[2017-10-03 09:21] LABS: BASO # 0.1 K/uL (0.0-0.2); BASO % 1.3 % (0.0-2.0); EOS # 0.1 K/uL (0.0-0.7); EOS % 2.3 % (0.0-4.0); HEMOGLOBIN 7.5 g/dL (12.0-18.0); LYMPH # 0.7 K/uL (1.0-4.3); LYMPH % 12.3 % (20.0-40.0); MEAN CELL VOLUME 62.9 fL (80.0-94.0); MEAN CORPUSCULAR HEMOGLOBIN 19.3 pg (27.0-31.0); MEAN CORPUSCULAR HGB CONC 30.7 g/dL (33.0-37.0); MEAN PLATELET VOLUME 6.8 fL (7.2-11.7); MONO # 0.8 K/uL (0.0-0.8); MONO % 15.7 % (0.0-10.0); NEUT # 3.7 K/uL (1.8-7.0); NEUT % 68.4 % (50.0-75.0); NRBC % 0.1 % (0.0-2.0); RBC 3.87 Mil/uL (4.40-5.90); RED CELL DISTRIBUTION WIDTH 20.1 % (11.5-14.5); WHITE BLOOD COUNT 5.4 K/uL (4.8-10.8)
[2017-10-03] MEDS: Pantoprazole 40 mg EC Tab PO SCH (09:44)
[2017-10-03] MEDS: Metoprolol Succinate 50 mg XL Tab PO SCH (09:46)
[2017-10-03] MEDS ORDERED: Peg-Electrolyte Oral Soln 4L (Golytely) PO ONE (14:00)
--- NOTE | 2017-10-03 15:14 | CP.PCM.CON ---
History of Present Illness - History of Present Illness History of Present Illness: patient seen/examined. full consult to follow. Patient has a remote history of CAD with stent placement. receiving transfusion due to anemia. stable for endoscopy/colonoscopy. no cardiovascular contraindications Past Patient History - Infectious Disease Hx of Infectious Diseases: None - Past Medical History & Family History Past Medical History?: Yes - Past Social History Smoking Status: Former Smoker - CARDIAC Hx Hypercholesterolemia: Yes Hx Hypertension: Yes - PULMONARY Hx Respiratory Disorders: No - NEUROLOGICAL Hx Neurological Disorder: No - HEENT Hx HEENT Problems: No - RENAL Hx Chronic Kidney Disease: No - ENDOCRINE/METABOLIC Hx Endocrine Disorders: Yes Hx Diabetes Mellitus Type 2: Yes - HEMATOLOGICAL/ONCOLOGICAL Hx Blood Disorders: No - INTEGUMENTARY Hx Dermatological Problems: No - MUSCULOSKELETAL/RHEUMATOLOGICAL Hx Musculoskeletal Disorders: No Hx Falls: No - GASTROINTESTINAL Hx Gastrointestinal Disorders: No - GENITOURINARY/GYNECOLOGICAL Hx Genitourinary Disorders: Yes Other/Comment: 'prostate problems' - PSYCHIATRIC Hx Substance Use: No - SURGICAL HISTORY Hx Coronary Stent: Yes (PTCA/stent x4) - ANESTHESIA Hx Anesthesia: Yes Hx Anesthesia Reactions: No Meds Allergies/Adverse Reactions: Allergies Allergy/AdvReac Type Severity Reaction Status Date / Time No Known Allergies Allergy Verified 10/02/17 10:08 - Medications Medications: Current Medications Bisacodyl (Dulcolax) 5 mg PO ONCE ONE Stop: 10/03/17 17:01 Finasteride (Proscar) 5 mg PO DAILY [facility] Last Admin: 10/03/17 09:44 Dose: 5 mg Insulin Human Regular (Novolin R) 0 unit SC [facility] PRN Reason: Protocol Last Admin: 10/03/17 13:42 Dose: 2 unit Lisinopril (Zestril) 5 mg PO DAILY [facility] Last Admin: 10/03/17 09:46 Dose: Not Given Metoprolol Succinate (Toprol Xl) 50 mg PO DAILY [facility] Last Admin: 10/03/17 09:46 Dose: 50 mg Pantoprazole Sodium (Protonix Ec Tab) 40 mg PO DAILY [facility] Last Admin: 10/03/17 09:44 Dose: 40 mg Polyethylene Glycol/Electrolytes (Golytely) 2,000 ml PO ONCE ONE Stop: 10/04/17 04:01 Rosuvastatin Calcium (Crestor) 10 mg PO [facility] Last Admin: 10/02/17 21:52 Dose: 10 mg Tamsulosin HCl (Flomax) 0.4 mg PO DAILY [facility] Last Admin: 10/03/17 09:44 Dose: 0.4 mg Results - Vital Signs Recent Vital Signs: Last Vital Signs Temp 98.1 F 10/03/17 14:52 Pulse 85 10/03/17 14:52 Resp 18 10/03/17 14:52 BP 115/70 10/03/17 14:52 Pulse Ox 94 L 10/03/17 07:55 - Labs Result Diagrams: 10/03/17 09:12 10/03/17 08:38 Labs: Laboratory Results - last 24 hr 10/02/17 10/02/17 10/02/17 11:01 15:16 16:17 WBC RBC Hgb Hct MCV MCH MCHC RDW Plt Count MPV Neut % (Auto) Lymph % (Auto) [place] % (Auto) Eos % (Auto) Baso % (Auto) Neut # (Auto) Lymph # (Auto) [place] # (Auto) Eos # (Auto) Baso # (Auto) Differential Comment Sodium Potassium Chloride Carbon Dioxide Anion Gap BUN Creatinine Est GFR ( Amer) Est GFR (Non-Af Amer) POC Glucose (mg/dL) 121 H Random Glucose Calcium Iron < 10 L TIBC 381 % Saturation 2.6 L Total Bilirubin AST ALT Alkaline Phosphatase Total Protein Albumin Globulin Albumin/Globulin Ratio Blood Type A POSITIVE Blood Type Confirm A POSITIVE Antibody Screen Negative 10/02/17 10/03/17 10/03/17 20:58 06:22 08:38 WBC RBC Hgb Hct MCV MCH MCHC RDW Plt Count MPV Neut % (Auto) Lymph % (Auto) [place] % (Auto) Eos % (Auto) Baso % (Auto) Neut # (Auto) Lymph # (Auto) [place] # (Auto) Eos # (Auto) Baso # (Auto) Differential Comment Sodium 136 Potassium 4.1 Chloride 98 Carbon Dioxide 30 Anion Gap 12 BUN 8 L Creatinine 0.8 Est GFR ( Amer) > 60 Est GFR (Non-Af Amer) > 60 POC Glucose (mg/dL) 170 H 108 Random Glucose 125 H Calcium 8.6 Iron TIBC % Saturation Total Bilirubin 0.6 AST 18 ALT 30 Alkaline Phosphatase 67 Total Protein 6.8 Albumin 3.6 Globulin 3.2 Albumin/Globulin Ratio 1.1 Blood Type Blood Type Confirm Antibody Screen 10/03/17 10/03/17 09:12 11:25 WBC 5.4 RBC 3.87 L Hgb 7.5 L Hct 24.3 L MCV 62.9 L MCH 19.3 L MCHC 30.7 L RDW 20.1 H Plt Count 346 MPV 6.8 L Neut % (Auto) 68.4 Lymph % (Auto) 12.3 L [place] % (Auto) 15.7 H Eos % (Auto) 2.3 Baso % (Auto) 1.3 Neut # (Auto) 3.7 Lymph # (Auto) 0.7 L [place] # (Auto) 0.8 Eos # (Auto) 0.1 Baso # (Auto) 0.1 Differential Comment Sodium Potassium Chloride Carbon Dioxide Anion Gap BUN Creatinine Est GFR ( Amer) Est GFR (Non-Af Amer) POC Glucose (mg/dL) 157 H Random Glucose Calcium Iron TIBC % Saturation Total Bilirubin AST ALT Alkaline Phosphatase Total Protein Albumin Globulin Albumin/Globulin Ratio Blood Type Blood Type Confirm Antibody Screen
--- NOTE | 2017-10-03 15:14 | CP.PCM.CON ---
Past Patient History - Infectious Disease Hx of Infectious Diseases: None - Past Medical History & Family History Past Medical History?: Yes - Past Social History Smoking Status: Former Smoker - CARDIAC Hx Hypercholesterolemia: Yes Hx Hypertension: Yes - PULMONARY Hx Respiratory Disorders: No - NEUROLOGICAL Hx Neurological Disorder: No - HEENT Hx HEENT Problems: No - RENAL Hx Chronic Kidney Disease: No - ENDOCRINE/METABOLIC Hx Endocrine Disorders: Yes Hx Diabetes Mellitus Type 2: Yes - HEMATOLOGICAL/ONCOLOGICAL Hx Blood Disorders: No - INTEGUMENTARY Hx Dermatological Problems: No - MUSCULOSKELETAL/RHEUMATOLOGICAL Hx Musculoskeletal Disorders: No Hx Falls: No - GASTROINTESTINAL Hx Gastrointestinal Disorders: No - GENITOURINARY/GYNECOLOGICAL Hx Genitourinary Disorders: Yes Other/Comment: 'prostate problems' - PSYCHIATRIC Hx Substance Use: No - SURGICAL HISTORY Hx Coronary Stent: Yes (PTCA/stent x4) - ANESTHESIA Hx Anesthesia: Yes Hx Anesthesia Reactions: No Meds Allergies/Adverse Reactions: Allergies Allergy/AdvReac Type Severity Reaction Status Date / Time No Known Allergies Allergy Verified 10/02/17 10:08 - Medications Medications: Current Medications Bisacodyl (Dulcolax) 5 mg PO ONCE ONE Stop: 10/03/17 17:01 Finasteride (Proscar) 5 mg PO DAILY [facility] Last Admin: 10/03/17 09:44 Dose: 5 mg Insulin Human Regular (Novolin R) 0 unit SC [facility] PRN Reason: Protocol Last Admin: 10/03/17 13:42 Dose: 2 unit Lisinopril (Zestril) 5 mg PO DAILY [facility] Last Admin: 10/03/17 09:46 Dose: Not Given Metoprolol Succinate (Toprol Xl) 50 mg PO DAILY [facility] Last Admin: 10/03/17 09:46 Dose: 50 mg Pantoprazole Sodium (Protonix Ec Tab) 40 mg PO DAILY [facility] Last Admin: 10/03/17 09:44 Dose: 40 mg Polyethylene Glycol/Electrolytes (Golytely) 2,000 ml PO ONCE ONE Stop: 10/04/17 04:01 Rosuvastatin Calcium (Crestor) 10 mg PO [facility] Last Admin: 10/02/17 21:52 Dose: 10 mg Tamsulosin HCl (Flomax) 0.4 mg PO DAILY [facility] Last Admin: 10/03/17 09:44 Dose: 0.4 mg Results - Vital Signs Recent Vital Signs: Last Vital Signs Temp 98.1 F 10/03/17 14:52 Pulse 85 10/03/17 14:52 Resp 18 10/03/17 14:52 BP 115/70 10/03/17 14:52 Pulse Ox 94 L 10/03/17 07:55 - Labs Result Diagrams: 10/03/17 09:12 10/03/17 08:38 Labs: Laboratory Results - last 24 hr 10/02/17 10/02/17 10/02/17 11:01 15:16 16:17 WBC RBC Hgb Hct MCV MCH MCHC RDW Plt Count MPV Neut % (Auto) Lymph % (Auto) [place] % (Auto) Eos % (Auto) Baso % (Auto) Neut # (Auto) Lymph # (Auto) [place] # (Auto) Eos # (Auto) Baso # (Auto) Differential Comment Sodium Potassium Chloride Carbon Dioxide Anion Gap BUN Creatinine Est GFR ( Amer) Est GFR (Non-Af Amer) POC Glucose (mg/dL) 121 H Random Glucose Calcium Iron < 10 L TIBC 381 % Saturation 2.6 L Total Bilirubin AST ALT Alkaline Phosphatase Total Protein Albumin Globulin Albumin/Globulin Ratio Blood Type A POSITIVE Blood Type Confirm A POSITIVE Antibody Screen Negative 10/02/17 10/03/17 10/03/17 20:58 06:22 08:38 WBC RBC Hgb Hct MCV MCH MCHC RDW Plt Count MPV Neut % (Auto) Lymph % (Auto) [place] % (Auto) Eos % (Auto) Baso % (Auto) Neut # (Auto) Lymph # (Auto) [place] # (Auto) Eos # (Auto) Baso # (Auto) Differential Comment Sodium 136 Potassium 4.1 Chloride 98 Carbon Dioxide 30 Anion Gap 12 BUN 8 L Creatinine 0.8 Est GFR ( Amer) > 60 Est GFR (Non-Af Amer) > 60 POC Glucose (mg/dL) 170 H 108 Random Glucose 125 H Calcium 8.6 Iron TIBC % Saturation Total Bilirubin 0.6 AST 18 ALT 30 Alkaline Phosphatase 67 Total Protein 6.8 Albumin 3.6 Globulin 3.2 Albumin/Globulin Ratio 1.1 Blood Type Blood Type Confirm Antibody Screen 10/03/17 10/03/17 09:12 11:25 WBC 5.4 RBC 3.87 L Hgb 7.5 L Hct 24.3 L MCV 62.9 L MCH 19.3 L MCHC 30.7 L RDW 20.1 H Plt Count 346 MPV 6.8 L Neut % (Auto) 68.4 Lymph % (Auto) 12.3 L [place] % (Auto) 15.7 H Eos % (Auto) 2.3 Baso % (Auto) 1.3 Neut # (Auto) 3.7 Lymph # (Auto) 0.7 L [place] # (Auto) 0.8 Eos # (Auto) 0.1 Baso # (Auto) 0.1 Differential Comment Sodium Potassium Chloride Carbon Dioxide Anion Gap BUN Creatinine Est GFR ( Amer) Est GFR (Non-Af Amer) POC Glucose (mg/dL) 157 H Random Glucose Calcium Iron TIBC % Saturation Total Bilirubin AST ALT Alkaline Phosphatase Total Protein Albumin Globulin Albumin/Globulin Ratio Blood Type Blood Type Confirm Antibody Screen
[2017-10-03] MEDS ORDERED: Bisacodyl 5mg EC Tab PO ONE (17:00)
[2017-10-04] MEDS ORDERED: Peg-Electrolyte Oral Soln 4L (Golytely) PO ONE (04:00)
[2017-10-04 07:51] LABS: BASO % 0.5 % (0.0-2.0); EOS # 0.1 K/uL (0.0-0.7); EOS % 1.9 % (0.0-4.0); HEMOGLOBIN 8.8 g/dL (12.0-18.0); LYMPH # 0.7 K/uL (1.0-4.3); LYMPH % 13.2 % (20.0-40.0); MEAN CELL VOLUME 64.3 fL (80.0-94.0); MEAN CORPUSCULAR HGB CONC 31.1 g/dL (33.0-37.0); MEAN PLATELET VOLUME 6.7 fL (7.2-11.7); MONO # 0.9 K/uL (0.0-0.8); MONO % 16.5 % (0.0-10.0); NEUT # 3.7 K/uL (1.8-7.0); NEUT % 67.9 % (50.0-75.0); NRBC % 0.1 % (0.0-2.0); RBC 4.4 Mil/uL (4.40-5.90); RED CELL DISTRIBUTION WIDTH 22.3 % (11.5-14.5); WHITE BLOOD COUNT 5.4 K/uL (4.8-10.8)
--- NOTE | 2017-10-04 07:53 | CP.PCM.PN ---
<Taran Elias - Last Filed: 10/04/17 16:24> Subjective - Date & Time of Evaluation Date of Evaluation: 10/04/17 Time of Evaluation: 15:30 - Subjective Subjective: Medicine progress note for Dr. Rondon Patient seen and examined. Patient has returned from EGD and colonoscopy. Patient denies fever, chills, fatigue, dizziness, weakness, chest pain, dyspnea , abdominal pain, dysuria. Patient ambulating with attending on rounds in the hallway. Objective - Vital Signs/Intake and Output Vital Signs (last 24 hours): Temp Pulse Resp BP Pulse Ox 99 F 84 20 106/59 L 95 10/04/17 00:04 10/04/17 00:31 10/04/17 00:04 10/04/17 00:04 10/04/17 00:04 Intake and Output: 10/04/17 10/04/17 06:59 18:59 Output Total 200 Balance -200 - Medications Medications: Current Medications Finasteride (Proscar) 5 mg PO DAILY [facility] Last Admin: 10/03/17 09:44 Dose: 5 mg Insulin Human Regular (Novolin R) 0 unit SC [facility] PRN Reason: Protocol Last Admin: 10/03/17 22:23 Dose: Not Given Lisinopril (Zestril) 5 mg PO DAILY [facility] Last Admin: 10/03/17 09:46 Dose: Not Given Metoprolol Succinate (Toprol Xl) 50 mg PO DAILY [facility] Last Admin: 10/03/17 09:46 Dose: 50 mg Pantoprazole Sodium (Protonix Ec Tab) 40 mg PO DAILY [facility] Last Admin: 10/03/17 09:44 Dose: 40 mg Rosuvastatin Calcium (Crestor) 10 mg PO [facility] Last Admin: 10/03/17 22:22 Dose: 10 mg Tamsulosin HCl (Flomax) 0.4 mg PO DAILY [facility] Last Admin: 10/03/17 09:44 Dose: 0.4 mg - Labs Labs: 10/03/17 09:12 10/03/17 08:38 PT 13.2 SECONDS (9.7-12.2) H 10/02/17 11:01 INR 1.2 10/02/17 11:01 - Additional Findings Additional findings: - Constitutional Appears: No Acute Distress - Head Exam Head Exam: ATRAUMATIC, NORMAL INSPECTION - Eye Exam Eye Exam: EOMI, Normal appearance - ENT Exam ENT Exam: Mucous Membranes Moist - Respiratory Exam Respiratory Exam: Clear to Auscultation Bilateral, NORMAL BREATHING PATTERN. absent: Rales, Rhonchi, Wheezes, Respiratory Distress - Cardiovascular Exam Cardiovascular Exam: REGULAR RHYTHM, +S1, +S2 - GI/Abdominal Exam GI & Abdominal Exam: Hernia (umbilical; scar from previous repair), Normal Bowel Sounds, Soft, Tenderness (with deep palpation- epigastric/right upper). absent: Distended, Firm - Extremities Exam Extremities exam: Positive for: normal inspection, pedal pulses present. Negative for: pedal edema - Neurological Exam Neurological exam: Alert, Oriented x3 Additional comments: Right sided facial droop (reyes's palsy) - Psychiatric Exam Psychiatric exam: Normal Affect, Normal Mood - Skin Skin Exam: Dry, Intact, Normal Color, Warm Assessment and Plan - Assessment and Plan (Free Text) Plan: Anemia Hgb 7 at admission * Stool occult negative * GI consulted, Dr. Avilez, help appreciated * s/p 2 units pRBCs * Iron studies ordered by GI: iron <10, TIBC 381, %sat 2.6 EGD shows gastritis. Colonoscopy shows grade 3 internal hemorrhoids. Diabetes Patient reports having "Borderline Diabetes" * Home med: Metformin 500mg PO Daily- HOLD * ISS, hypoglycemia protocol * A1c: f/u * Accuchecks * Continue to monitor CAD (coronary artery disease) Hx of CAD, 3 stents * Cardiology consulted, Dr. 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 Hold Plavix * Echo: f/u results * Aspirin restarted HTN (hypertension) Continue home med: Metoprolol 50mg PO daily, Lisinopril 5mg PO daily Continue to monitor vitals Hypercholesterolemia Continue home med: Crestor 10mg PO HS Abdominal pain Abdomen/Pelvis CT w/PO+IV: large amount of stool within colon; hepatic cyst; renal cyst; nonobstructing 3mm calcification in midportion of left kidney; enlarge prostate (no change from previous); vertebral hemangioma at L4. Prophylactic measure SCDs; No chemical anticoagulation; Hold Plavix Protonix 40mg PO daily Liquid Diet Disposition: Will monitor H/H and likely discharge if stable tomorrow. Case DW Dr. Nela Elias PGY-1 <Trever Rondon H - Last Filed: 10/04/17 17:18> Objective - Vital Signs/Intake and Output Vital Signs (last 24 hours): Temp Pulse Resp BP Pulse Ox 99.8 F H 79 20 113/63 95 10/04/17 16:30 10/04/17 16:30 10/04/17 16:30 10/04/17 16:30 10/04/17 16:30 Intake and Output: 10/04/17 10/04/17 06:59 18:59 Intake Total 300 Output Total 200 Balance -200 300 - Medications Medications: Current Medications Aspirin (Aspirin Chewable) 81 mg PO DAILY [facility] Finasteride (Proscar) 5 mg PO DAILY [facility] Last Admin: 10/04/17 11:32 Dose: 5 mg Insulin Human Regular (Novolin R) 0 unit SC [facility] PRN Reason: Protocol Last Admin: 10/04/17 11:59 Dose: Not Given Lisinopril (Zestril) 5 mg PO DAILY [facility] Last Admin: 10/04/17 11:38 Dose: 5 mg Metoprolol Succinate (Toprol Xl) 50 mg PO DAILY [facility] Last Admin: 10/04/17 11:39 Dose: 50 mg Pantoprazole Sodium (Protonix Ec Tab) 40 mg PO DAILY [facility] Last Admin: 10/04/17 11:39 Dose: 40 mg Rosuvastatin Calcium (Crestor) 10 mg PO HS [facility] Last Admin: 10/03/17 22:22 Dose: 10 mg Tamsulosin HCl (Flomax) 0.4 mg PO DAILY [facility] Last Admin: 10/04/17 11:32 Dose: 0.4 mg - Labs Labs: 10/04/17 07:34 10/04/17 07:34 PT 13.2 SECONDS (9.7-12.2) H 10/02/17 11:01 INR 1.2 10/02/17 11:01 Attending/Attestation - Attestation I have personally seen and examined this patient.: Yes I have fully participated in the care of the patient.: Yes I have reviewed all pertinent clinical information, including history, physical exam and plan: Yes Notes (Text): 10/04/17 17:18 Medical attending: Patient was seen and examined by me, agrees the above note by medical secretary receptionist. I saw the patient together with medical secretary receptionist. Family members were also present in the room, the patient was okay with this. Patient was initially admitted with a low hemoglobin. He required a blood transfusion due to feeling weak and tired he then subsequently today had a EGD as well as colonoscopy. The EGD showed that he had gastritis colonoscopy showed that he had internal hemorrhoids. We saw the patient after he returned from the endoscopy lab. He reported that he is feeling well we were able to walk with us, he did not have any shortness of breath or palpitations we are walking around he also denied having chest pain on ambulation as well. Later on during the day I was informed by GI that the patient can resume his aspirin as well as Plavix Also will follow the patient can tomorrow and if his blood work is stable we'll probably discharge the patient tomorrow Thank you very much, Trever Rondon
[2017-10-04 08:00] LABS: ALB/GLOB RATIO 1.2 (1.0-2.1); ALT/SGPT 21 U/L (21-72); AST/SGOT 21 U/L (17-59); BLOOD UREA NITROGEN 8 mg/dL (9-20); CALCIUM 8.9 mg/dl (8.6-10.4); GFR AFRICAN-AMERICAN > 60; GFR NON-AFRICAN AMERICAN > 60
[2017-10-04] MEDS: (Novolin R) Insulin Human Regular 100 units/ml vial SC SCH ×4 (08:16→21:40)
[2017-10-04] MEDS ORDERED: Propofol 10 mg/ml Inj (20 ML) ONE ×2 (09:37→09:55)
[2017-10-04] MEDS ORDERED: Etomidate 20 mg/10ml Inj IV ONE (09:39)
[2017-10-04] MEDS ORDERED: Influenza Vaccine 60 mcg/0.5 mL SYR (4YR UP) IM ONE (10:00)
[2017-10-04] MEDS: Pantoprazole 40 mg EC Tab PO SCH (11:39)
[2017-10-04] MEDS: Metoprolol Succinate 50 mg XL Tab PO SCH (11:39)
[2017-10-05 05:04] VITALS: TEMP 98.6
--- NOTE | 2017-10-05 06:51 | CP.PCM.PN ---
<Conner Porras - Last Filed: 10/05/17 08:27> Subjective - Date & Time of Evaluation Date of Evaluation: 10/05/17 Time of Evaluation: 06:50 - Subjective Subjective: GI progress note: Pt seen and examined at bedside. No acute events overnight. Pt did have a 102.7 fever overnight and Tylenol was administered. Pt currently afebrile. He denies any abdominal pain, nausea, vomiting, or diarrhea. Tolerating diet. No complaints at this time. 12 Point ROS performed and negative other than stated above Objective - Vital Signs/Intake and Output Vital Signs (last 24 hours): Temp Pulse Resp BP Pulse Ox 98.6 F 89 18 113/60 96 10/05/17 01:50 10/05/17 01:00 10/05/17 00:38 10/05/17 00:38 10/05/17 00:38 Intake and Output: 10/04/17 10/05/17 18:59 06:59 Intake Total 980 Balance 980 - Medications Medications: Current Medications Aspirin (Aspirin Chewable) 81 mg PO DAILY [facility] Finasteride (Proscar) 5 mg PO DAILY [facility] Last Admin: 10/04/17 11:32 Dose: 5 mg Insulin Human Regular (Novolin R) 0 unit SC [facility] PRN Reason: Protocol Last Admin: 10/04/17 21:40 Dose: Not Given Lisinopril (Zestril) 5 mg PO DAILY [facility] Last Admin: 10/04/17 11:38 Dose: 5 mg Metoprolol Succinate (Toprol Xl) 50 mg PO DAILY [facility] Last Admin: 10/04/17 11:39 Dose: 50 mg Pantoprazole Sodium (Protonix Ec Tab) 40 mg PO DAILY [facility] Last Admin: 10/04/17 11:39 Dose: 40 mg Rosuvastatin Calcium (Crestor) 10 mg PO HS [facility] Last Admin: 10/04/17 21:39 Dose: 10 mg Tamsulosin HCl (Flomax) 0.4 mg PO DAILY [facility] Last Admin: 10/04/17 11:32 Dose: 0.4 mg - Labs Labs: 10/04/17 07:34 10/04/17 07:34 PT 13.2 SECONDS (9.7-12.2) H 10/02/17 11:01 INR 1.2 10/02/17 11:01 - Constitutional Appears: No Acute Distress - Head Exam Head Exam: ATRAUMATIC, NORMOCEPHALIC - Eye Exam Eye Exam: EOMI - ENT Exam ENT Exam: Mucous Membranes Moist - Respiratory Exam Respiratory Exam: Clear to Ausculation Bilateral. absent: Rales, Wheezes - Cardiovascular Exam Cardiovascular Exam: RRR, +S1, +S2 - GI/Abdominal Exam GI & Abdominal Exam: Soft, Normal Bowel Sounds. absent: Distended, Tenderness, Organomegaly - Extremities Exam Extremities Exam: absent: Calf Tenderness - Neurological Exam Neurological Exam: Alert, Awake, Oriented x3 - Psychiatric Exam Psychiatric exam: Normal Mood - Skin Skin Exam: Dry, Intact, Warm Assessment and Plan - Assessment and Plan (Free Text) Assessment: 72M w/ PMHx of CAD s/p stent on plavix, DM, HTN who presents to the ER for progressive microcytic anemia. - s/p 1 unit PRBC. S/p EGD showing gastritis 3cm hiatal hernia POD 1. Colonoscopy showing diverticulosis in ascending and transverse colon and internal hemorrhoids POD 1. Progressive, symptomatic microcytic anemia (baseline Hb from 05/2017 of 10.4) CAD s/p stent on plavix DM HTN -Diet as tolerated -Cont to monitor H/H -Protonix 40mg PO daily -Anti-emetics PRN -F/u biopsies and pathology reports -F/u cardiology recs -Ok to start Plavix today -Recommend hematology consult as outpatient -Will continue to monitor patient clinical course Case and plan was reviewed and discussed in detail with Dr Avilez. <René Avilez - Last Filed: 10/05/17 08:42> Objective - Vital Signs/Intake and Output Vital Signs (last 24 hours): Temp Pulse Resp BP Pulse Ox 98.6 F 78 20 95/60 L 95 10/05/17 07:20 10/05/17 07:20 10/05/17 07:20 10/05/17 07:20 10/05/17 07:20 - Medications Medications: Current Medications Aspirin (Aspirin Chewable) 81 mg PO DAILY [facility] Clopidogrel Bisulfate (Plavix) 75 mg PO DAILY [facility] Finasteride (Proscar) 5 mg PO DAILY [facility] Last Admin: 10/04/17 11:32 Dose: 5 mg Insulin Human Regular (Novolin R) 0 unit SC [facility] PRN Reason: Protocol Last Admin: 10/05/17 08:01 Dose: Not Given Lisinopril (Zestril) 5 mg PO DAILY [facility] Last Admin: 10/04/17 11:38 Dose: 5 mg Metoprolol Succinate (Toprol Xl) 50 mg PO DAILY [facility] Last Admin: 10/04/17 11:39 Dose: 50 mg Pantoprazole Sodium (Protonix Ec Tab) 40 mg PO DAILY [facility] Last Admin: 10/04/17 11:39 Dose: 40 mg Rosuvastatin Calcium (Crestor) 10 mg PO HS [facility] Last Admin: 10/04/17 21:39 Dose: 10 mg Tamsulosin HCl (Flomax) 0.4 mg PO DAILY [facility] Last Admin: 10/04/17 11:32 Dose: 0.4 mg - Labs Labs: 10/05/17 07:51 10/05/17 07:51 PT 13.2 SECONDS (9.7-12.2) H 10/02/17 11:01 INR 1.2 10/02/17 11:01 Attending/Attestation - Attestation I have personally seen and examined this patient.: Yes I have fully participated in the care of the patient.: Yes I have reviewed all pertinent clinical information, including history, physical exam and plan: Yes Notes (Text): 10/05/17 08:39 I have seen and examined patient with GI fellow and clinical medical transcriptionist. No acute events overnight, elevated temperature noted. He denies abdominal pain, nausea , vomiting, chills. Tolerating PO diet without difficulty. Review of vitals from this morning are normal. CAD s/p stent DM HTN Symptomatic progressive microcytic anemia - s/p EGD and colonoscopy showing gastritis, hiatal hernia, diverticulosis and internal hemorrhoids. No active bleeding noted on examination. - Diet as tolerated - H/H stable, continue to monitor - Follow up EGD biopsy results - Suggest hematology evaluation, if workup negative would consider outpatient capsule study - No further planned interventions, from GI standpoint ok to discharge patient home with subsequent outpatient follow up. Will sign off case, please reconsult as necessary, thank you.
--- NOTE | 2017-10-05 07:16 | CP.PCM.PN ---
Objective - Vital Signs/Intake and Output Vital Signs (last 24 hours): Temp Pulse Resp BP Pulse Ox 98.6 F 89 18 113/60 96 10/05/17 01:50 10/05/17 01:00 10/05/17 00:38 10/05/17 00:38 10/05/17 00:38 - Medications Medications: Current Medications Aspirin (Aspirin Chewable) 81 mg PO DAILY [facility] Clopidogrel Bisulfate (Plavix) 75 mg PO DAILY [facility] Finasteride (Proscar) 5 mg PO DAILY [facility] Last Admin: 10/04/17 11:32 Dose: 5 mg Insulin Human Regular (Novolin R) 0 unit SC [facility] PRN Reason: Protocol Last Admin: 10/04/17 21:40 Dose: Not Given Lisinopril (Zestril) 5 mg PO DAILY [facility] Last Admin: 10/04/17 11:38 Dose: 5 mg Metoprolol Succinate (Toprol Xl) 50 mg PO DAILY [facility] Last Admin: 10/04/17 11:39 Dose: 50 mg Pantoprazole Sodium (Protonix Ec Tab) 40 mg PO DAILY [facility] Last Admin: 10/04/17 11:39 Dose: 40 mg Rosuvastatin Calcium (Crestor) 10 mg PO HS [facility] Last Admin: 10/04/17 21:39 Dose: 10 mg Tamsulosin HCl (Flomax) 0.4 mg PO DAILY [facility] Last Admin: 10/04/17 11:32 Dose: 0.4 mg - Labs Labs: 10/04/17 07:34 10/04/17 07:34 PT 13.2 SECONDS (9.7-12.2) H 10/02/17 11:01 INR 1.2 10/02/17 11:01
[2017-10-05 08:01] LABS: BASO % 0.9 % (0.0-2.0); EOS % 0.6 % (0.0-4.0); HEMOGLOBIN 8.1 g/dL (12.0-18.0); LYMPH # 0.8 K/uL (1.0-4.3); MEAN CELL VOLUME 64.3 fL (80.0-94.0); MEAN CORPUSCULAR HGB CONC 31.1 g/dL (33.0-37.0); MEAN PLATELET VOLUME 6.6 fL (7.2-11.7); MONO # 0.8 K/uL (0.0-0.8); NEUT # 2.6 K/uL (1.8-7.0); NEUT % 62.5 % (50.0-75.0); NRBC % 0.2 % (0.0-2.0); RBC 4.05 Mil/uL (4.40-5.90); RED CELL DISTRIBUTION WIDTH 22.7 % (11.5-14.5); WHITE BLOOD COUNT 4.2 K/uL (4.8-10.8)
[2017-10-05] MEDS: (Novolin R) Insulin Human Regular 100 units/ml vial SC SCH ×2 (08:01→12:58)
[2017-10-05 08:09] VITALS: BP 95/60; RESP 20
[2017-10-05 08:20] LABS: ALB/GLOB RATIO 1.2 (1.0-2.1); ALBUMIN 3.4 g/dL (3.5-5.0); ALT/SGPT 21 U/L (21-72); AST/SGOT 17 U/L (17-59); BLOOD UREA NITROGEN 13 mg/dL (9-20); CALCIUM 7.6 mg/dl (8.6-10.4); GFR AFRICAN-AMERICAN > 60; GFR NON-AFRICAN AMERICAN > 60
[2017-10-05] MEDS: Pantoprazole 40 mg EC Tab PO SCH (09:57)
[2017-10-05] MEDS: Metoprolol Succinate 50 mg XL Tab PO SCH (09:57)
[2017-10-05] MEDS ORDERED: Influenza Vaccine 60 mcg/0.5 mL SYR (4YR UP) IM ONE (10:00)
--- NOTE | 2017-10-05 11:44 | CP.PCM.DIS ---
<Taran Elias - Last Filed: 10/05/17 11:38> Provider - Provider Date of Admission: 10/02/17 11:45 Attending physician: Cyndi Luong MD Primary care physician: Dr. Merino Consults: Cardiology-Dr. Shi Gastroenterology-Dr. Avilez Time Spent in preparation of Discharge (in minutes): 45 Diagnosis - Discharge Diagnosis (1) Symptomatic anemia Status: Acute (2) Internal hemorrhoids Status: Acute (3) Gastritis Status: Acute (4) History of diabetes mellitus Status: Chronic (5) History of coronary artery disease Status: Chronic (6) History of hypertension Status: Chronic (7) History of hypercholesterolemia Status: Chronic Hospital Course - Lab Results Lab Results: Most Recent Lab Values WBC 4.2 K/uL (4.8-10.8) L 10/05/17 07:51 RBC 4.05 Mil/uL (4.40-5.90) L 10/05/17 07:51 Hgb 8.1 g/dL (12.0-18.0) L 10/05/17 07:51 Hct 26.0 % (35.0-51.0) L 10/05/17 07:51 MCV 64.3 fL (80.0-94.0) L 10/05/17 07:51 MCH 20.0 pg (27.0-31.0) L 10/05/17 07:51 MCHC 31.1 g/dL (33.0-37.0) L 10/05/17 07:51 RDW 22.7 % (11.5-14.5) H 10/05/17 07:51 Plt Count 275 K/uL (130-400) 10/05/17 07:51 MPV 6.6 fL (7.2-11.7) L 10/05/17 07:51 Neut % (Auto) 62.5 % (50.0-75.0) 10/05/17 07:51 Lymph % (Auto) 18.0 % (20.0-40.0) L 10/05/17 07:51 [place] % (Auto) 18.0 % (0.0-10.0) H 10/05/17 07:51 Eos % (Auto) 0.6 % (0.0-4.0) 10/05/17 07:51 Baso % (Auto) 0.9 % (0.0-2.0) 10/05/17 07:51 Neut # (Auto) 2.6 K/uL (1.8-7.0) 10/05/17 07:51 Lymph # (Auto) 0.8 K/uL (1.0-4.3) L 10/05/17 07:51 [place] # (Auto) 0.8 K/uL (0.0-0.8) 10/05/17 07:51 Eos # (Auto) 0.0 K/uL (0.0-0.7) 10/05/17 07:51 Baso # (Auto) 0.0 K/uL (0.0-0.2) 10/05/17 07:51 Differential Comment 10/03/17 09:12 PT 13.2 SECONDS (9.7-12.2) H 10/02/17 11:01 INR 1.2 10/02/17 11:01 Sodium 135 mmol/L (132-148) 10/05/17 07:51 Potassium 3.8 mmol/L (3.6-5.2) 10/05/17 07:51 Chloride 97 mmol/L (98-107) L 10/05/17 07:51 Carbon Dioxide 28 mmol/L (22-30) 10/05/17 07:51 Anion Gap 14 (10-20) 10/05/17 07:51 BUN 13 mg/dL (9-20) 10/05/17 07:51 Creatinine 0.8 mg/dL (0.8-1.5) 10/05/17 07:51 Est GFR ( Amer) > 60 10/05/17 07:51 Est GFR (Non-Af Amer) > 60 10/05/17 07:51 POC Glucose (mg/dL) 108 mg/dL (65-110) 10/05/17 06:17 Random Glucose 106 mg/dL (75-110) 10/05/17 07:51 Hemoglobin A1c 7.3 % (4.2-6.5) H 10/03/17 08:38 Calcium 7.6 mg/dl (8.6-10.4) L 10/05/17 07:51 Iron < 10 ug/dL (49-181) L 10/02/17 15:16 TIBC 381 ug/dL (250-450) 10/02/17 15:16 % Saturation 2.6 (20-55) L 10/02/17 15:16 Total Bilirubin 0.4 mg/dL (0.2-1.3) 10/05/17 07:51 AST 17 U/L (17-59) 10/05/17 07:51 ALT 21 U/L (21-72) 10/05/17 07:51 Alkaline Phosphatase 58 U/L (38-126) 10/05/17 07:51 Total Protein 6.3 g/dL (6.3-8.3) 10/05/17 07:51 Albumin 3.4 g/dL (3.5-5.0) L 10/05/17 07:51 Globulin 2.9 gm/dL (2.2-3.9) 10/05/17 07:51 Albumin/Globulin Ratio 1.2 (1.0-2.1) 10/05/17 07:51 Urine Color Yellow (YELLOW) 10/02/17 11:01 Urine Clarity Clear (Clear) 10/02/17 11:01 Urine pH 5.0 (5.0-8.0) 10/02/17 11:01 Ur Specific [place] 1.022 (1.003-1.030) 10/02/17 11:01 Urine Protein Negative mg/dL (NEGATIVE) 10/02/17 11:01 Urine Glucose (UA) 3+ mg/dL (Normal) H 10/02/17 11:01 Urine Ketones Negative mg/dL (NEGATIVE) 10/02/17 11:01 Urine Blood Negative (NEGATIVE) 10/02/17 11:01 Urine Nitrate Negative (NEGATIVE) 10/02/17 11:01 Urine Bilirubin Negative (NEGATIVE) 10/02/17 11:01 Urine Urobilinogen Normal mg/dL (0.2-1.0) 10/02/17 11:01 Ur Leukocyte Esterase Neg Dejon/uL (Negative) 10/02/17 11:01 Urine WBC (Auto) 1 /hpf (0-5) 10/02/17 11:01 Urine RBC (Auto) < 1 /hpf (0-3) 10/02/17 11:01 Stool Occult Blood Negative (NEGATIVE) 10/02/17 12:16 Blood Type A POSITIVE 10/02/17 11:01 Blood Type Confirm A POSITIVE 10/02/17 11:01 Antibody Screen Negative 10/02/17 11:01 - Hospital Course Hospital Course: On admission: "Patient is a 72 year old male with a past medical history of HTN, HLD, DM, [place], bells palsy, CAD with 3 stents, who presents to the ED sent by PMD and GI for low hemoglobin. Patient went to Dr. Merino's office for his 6 month follow up who sent him to GI for a low hemoglobin. GI then send the patient to the ED for symptomatic anemia. Patient reports feeling tired and weak in the morning for the past 3-4 months. He also reports fell 3 months ago, and does not know how it happened, but woke up on the floor with blood on his forehead. Patient also reports dyspnea on exertion after 5 steps for the past 3 months. Patient denies blood in stool, dizziness, fevers, headaches, vision changes, chest pain, palpitations, cough, abdominal pain, n/v/d, and dysuria." Hospital Course: Patient admitted for symptomatic anemia with a hemoglobin of 7 and transfused 2 units of packed red blood cells. Patient's symptoms resolved thereafter. Patient denied blood in the stool and stool guiac was negative. Import And Export Clerk Dr. Shi was consulted for risk stratification for GI procedures. Professor Of Art Dr. Avilez was consulted. EGD and colonoscopy were performed on 10/04/17. EGD revealed evidence of gastritis and a small hiatal hernia. There were no ulcers found. Colonoscopy revealed grade 3 internal hemorrhoids. No evidence of active bleeding found on the upper and lower endoscopy studies. Biopsies of the stomach were taken to be sent for H. pylori testing. Results pending at time of discharge. Patient cleared from GI perspective for discharge. Also on the day of discharge, patient was seen on rounds ambulating around the halls with physical therapy without difficulty. Patient instructed to follow up with PMD and obtain a referral for outpatient hematology workup for his anemia. After seeing the funeral greeter, patient is to follow up with GI Dr. Avilez. This is a summary of the hospital course. For more information, refer to the medical records. Discharge Exam - Additional Findings Additional findings: - Constitutional Appears: No Acute Distress - Head Exam Head Exam: ATRAUMATIC, NORMAL INSPECTION - Eye Exam Eye Exam: EOMI, Normal appearance - ENT Exam ENT Exam: Mucous Membranes Moist - Respiratory Exam Respiratory Exam: Clear to Auscultation Bilateral, NORMAL BREATHING PATTERN. absent: Rales, Rhonchi, Wheezes, Respiratory Distress - Cardiovascular Exam Cardiovascular Exam: REGULAR RHYTHM, +S1, +S2 - GI/Abdominal Exam GI & Abdominal Exam: Hernia (umbilical; scar from previous repair), Normal Bowel Sounds, Soft, Tenderness (with deep palpation- epigastric/right upper). absent: Distended, Firm - Extremities Exam Extremities exam: Positive for: normal inspection, pedal pulses present. Negative for: pedal edema - Neurological Exam Neurological exam: Alert, Oriented x3 Additional comments: Right sided facial droop (reyes's palsy) - Psychiatric Exam Psychiatric exam: Normal Affect, Normal Mood - Skin Skin Exam: Dry, Intact, Normal Color, Warm Discharge Plan - Follow Up Plan Condition: STABLE Disposition: HOME/ ROUTINE Instructions: Coronary Artery Disease (DC), Diabetes Mellitus Type 2 in Adults (DC), Cholesterol and Your Health (GEN), Low Sodium Diet (DC), Hypertension (DC) , Anemia (DC) Additional Instructions: Resume all of your home medications as they were prescribed including the aspirin and plavix. Please follow up with Dr. Merino by Wednesday. He will need to give you an outpatient referral for a funeral greeter which is the blood doctor. After seeing the blood doctor, please follow up with Dr. Avilez the gate cutter who did your endoscopy and colonoscopy while you were in the hospital. If there are any new or worsening symptoms, please return to the emergency room. Reanude todas las medicinas de dietz casa marcell carito fueron recetadas, incluyendo la aspirina y el plavix. Por favor, siga con el Dr. Merino antes del viernes. Tendr que darle lin referencia ambulatoria para un hematlogo que es el hermilo guzman. Despus de brittney al hermilo guzman, siga con el Dr. Avilez, el gastroenterlogo que realiz dietz endoscopia y colonoscopia mientras estuvo en el hospital. Si hay sntomas nuevos o que empeoran, regrese a la juliane de emergencias. Referrals: Rashaun Merino MD [Staff Provider] - René Avilez MD [Staff Provider] - <Trever Rondon - Last Filed: 10/05/17 16:56> Provider - Provider Date of Admission: 10/02/17 11:45 Attending physician: Cyndi Luong MD Hospital Course - Lab Results Lab Results: Most Recent Lab Values WBC 4.2 K/uL (4.8-10.8) L 10/05/17 07:51 RBC 4.05 Mil/uL (4.40-5.90) L 10/05/17 07:51 Hgb 8.1 g/dL (12.0-18.0) L 10/05/17 07:51 Hct 26.0 % (35.0-51.0) L 10/05/17 07:51 MCV 64.3 fL (80.0-94.0) L 10/05/17 07:51 MCH 20.0 pg (27.0-31.0) L 10/05/17 07:51 MCHC 31.1 g/dL (33.0-37.0) L 10/05/17 07:51 RDW 22.7 % (11.5-14.5) H 10/05/17 07:51 Plt Count 275 K/uL (130-400) 10/05/17 07:51 MPV 6.6 fL (7.2-11.7) L 10/05/17 07:51 Neut % (Auto) 62.5 % (50.0-75.0) 10/05/17 07:51 Lymph % (Auto) 18.0 % (20.0-40.0) L 10/05/17 07:51 [place] % (Auto) 18.0 % (0.0-10.0) H 10/05/17 07:51 Eos % (Auto) 0.6 % (0.0-4.0) 10/05/17 07:51 Baso % (Auto) 0.9 % (0.0-2.0) 10/05/17 07:51 Neut # (Auto) 2.6 K/uL (1.8-7.0) 10/05/17 07:51 Lymph # (Auto) 0.8 K/uL (1.0-4.3) L 10/05/17 07:51 [place] # (Auto) 0.8 K/uL (0.0-0.8) 10/05/17 07:51 Eos # (Auto) 0.0 K/uL (0.0-0.7) 10/05/17 07:51 Baso # (Auto) 0.0 K/uL (0.0-0.2) 10/05/17 07:51 Differential Comment 10/03/17 09:12 PT 13.2 SECONDS (9.7-12.2) H 10/02/17 11:01 INR 1.2 10/02/17 11:01 Sodium 135 mmol/L (132-148) 10/05/17 07:51 Potassium 3.8 mmol/L (3.6-5.2) 10/05/17 07:51 Chloride 97 mmol/L (98-107) L 10/05/17 07:51 Carbon Dioxide 28 mmol/L (22-30) 10/05/17 07:51 Anion Gap 14 (10-20) 10/05/17 07:51 BUN 13 mg/dL (9-20) 10/05/17 07:51 Creatinine 0.8 mg/dL (0.8-1.5) 10/05/17 07:51 Est GFR ( Amer) > 60 10/05/17 07:51 Est GFR (Non-Af Amer) > 60 10/05/17 07:51 POC Glucose (mg/dL) 254 mg/dL (65-110) H 10/05/17 11:43 Random Glucose 106 mg/dL (75-110) 10/05/17 07:51 Hemoglobin A1c 7.3 % (4.2-6.5) H 10/03/17 08:38 Calcium 7.6 mg/dl (8.6-10.4) L 10/05/17 07:51 Iron < 10 ug/dL (49-181) L 10/02/17 15:16 TIBC 381 ug/dL (250-450) 10/02/17 15:16 % Saturation 2.6 (20-55) L 10/02/17 15:16 Total Bilirubin 0.4 mg/dL (0.2-1.3) 10/05/17 07:51 AST 17 U/L (17-59) 10/05/17 07:51 ALT 21 U/L (21-72) 10/05/17 07:51 Alkaline Phosphatase 58 U/L (38-126) 10/05/17 07:51 Total Protein 6.3 g/dL (6.3-8.3) 10/05/17 07:51 Albumin 3.4 g/dL (3.5-5.0) L 10/05/17 07:51 Globulin 2.9 gm/dL (2.2-3.9) 10/05/17 07:51 Albumin/Globulin Ratio 1.2 (1.0-2.1) 10/05/17 07:51 Urine Color Yellow (YELLOW) 10/02/17 11:01 Urine Clarity Clear (Clear) 10/02/17 11:01 Urine pH 5.0 (5.0-8.0) 10/02/17 11:01 Ur Specific [place] 1.022 (1.003-1.030) 10/02/17 11:01 Urine Protein Negative mg/dL (NEGATIVE) 10/02/17 11:01 Urine Glucose (UA) 3+ mg/dL (Normal) H 10/02/17 11:01 Urine Ketones Negative mg/dL (NEGATIVE) 10/02/17 11:01 Urine Blood Negative (NEGATIVE) 10/02/17 11:01 Urine Nitrate Negative (NEGATIVE) 10/02/17 11:01 Urine Bilirubin Negative (NEGATIVE) 10/02/17 11:01 Urine Urobilinogen Normal mg/dL (0.2-1.0) 10/02/17 11:01 Ur Leukocyte Esterase Neg Dejon/uL (Negative) 10/02/17 11:01 Urine WBC (Auto) 1 /hpf (0-5) 10/02/17 11:01 Urine RBC (Auto) < 1 /hpf (0-3) 10/02/17 11:01 Stool Occult Blood Negative (NEGATIVE) 10/02/17 12:16 Blood Type A POSITIVE 10/02/17 11:01 Blood Type Confirm A POSITIVE 10/02/17 11:01 Antibody Screen Negative 10/02/17 11:01 Attending/Attestation - Attestation I have personally seen and examined this patient.: Yes I have fully participated in the care of the patient.: Yes I have reviewed all pertinent clinical information, including history, physical exam and plan: Yes Notes (Text): Medical attending: Patient was seen and examined by me as well, agrees the above note by the medical scientific liaison. He reported no acute events overnight. He states to us that he tolerated his diet well. As reported before he underwent an EGD and colonoscopy these did not show any acute bleeding findings. He has had a blood transfusion while he's been here Today as well as yesterday he has been ambulating on his own without any assistance. He did not have any desaturations, he did not have chest pain or palpitations when walking on his own. I watched him walk around in the hospital hallway twice. So we'll let the patient go home today, I encouraged him to follow-up with his primary care physician as he will eventually need a hematology outpatient visit Thank you very much, Trever Rondon
[2017-10-05 12:51] VITALS: PULSE 84; O2SAT 97
--- NOTE | 2017-10-06 14:13 | CARD ---
APPROVED REPORT EKG Measurement Heart [id number] <Conclusion> Normal sinus rhythm Normal ECG
== END 2017-10-05 12:52 | disposition home or self-care (01) | DRG 812 ==
LOC: C.ER 09:51 → C.9E 11:45 → C.5S 16:19
PROVIDERS: ADMIT Internal Medicine; ATTEND Internal Medicine
PROC: 0DJD8ZZ Inspection of Lower Intestinal Tract, Via Natural or Artificial Opening Endoscopic (ICD-10-PCS; principal; 2017-10-04 09:42)
PROC: 0DB68ZX Excision of Stomach, Via Natural or Artificial Opening Endoscopic, Diagnostic (ICD-10-PCS; 2017-10-04 09:42)
DX: D50.9 Iron deficiency anemia, unspecified (principal); K64.2 Third degree hemorrhoids; K29.70 Gastritis, unspecified, without bleeding; K57.30 Diverticulosis of large intestine without perforation or abscess without bleeding; K44.9 Diaphragmatic hernia without obstruction or gangrene; I10 Essential (primary) hypertension; I25.10 Atherosclerotic heart disease of native coronary artery without angina pectoris; E11.9 Type 2 diabetes mellitus without complications; N28.1 Cyst of kidney, acquired; E78.5 Hyperlipidemia, unspecified; E78.00 Pure hypercholesterolemia, unspecified; K76.89 Other specified diseases of liver; I25.2 Old myocardial infarction; Z79.84 Long term (current) use of oral hypoglycemic drugs; Z80.0 Family history of malignant neoplasm of digestive organs; Z87.891 Personal history of nicotine dependence; Z91.81 History of falling; Z95.5 Presence of coronary angioplasty implant and graft

== ENCOUNTER 2018-01-20 06:45 | Day surgery (SDC) | payer MEDICARE, BC ==
[2018-01-19 13:37] VITALS: BMI 35.7
[2018-01-20 07:41] VITALS: TEMP 97
[2018-01-20] MEDS ORDERED: Lactated Ringer's 1,000 ML IV ONE (09:28)
[2018-01-20] MEDS ORDERED: Propofol 10 mg/ml Inj (20 ML) ONE ×2 (09:28→10:02)
[2018-01-20 10:57] VITALS: BP 131/76; PULSE 63; RESP 16; O2SAT 100
== END 2018-01-20 10:55 | disposition home or self-care (01) ==
LOC: C.ENDO 06:45
PROVIDERS: ATTEND Internal Medicine Gastroenterology
DX: D50.9 Iron deficiency anemia, unspecified (principal); K22.70 Barrett's esophagus without dysplasia; K44.9 Diaphragmatic hernia without obstruction or gangrene; I25.10 Atherosclerotic heart disease of native coronary artery without angina pectoris; I10 Essential (primary) hypertension; E11.9 Type 2 diabetes mellitus without complications; Z79.84 Long term (current) use of oral hypoglycemic drugs; Z79.02 Long term (current) use of antithrombotics/antiplatelets; Z79.899 Other long term (current) drug therapy; Z79.82 Long term (current) use of aspirin; I25.2 Old myocardial infarction; Z86.010 Personal history of colon polyps; Z95.5 Presence of coronary angioplasty implant and graft; Z87.891 Personal history of nicotine dependence
CPT/HCPCS: 43239; 88305; 88312; 88313; J2001; J2704; J7120

== ENCOUNTER 2018-06-22 11:06 | Emergency (ER) | payer MEDICARE, BC ==
[2018-06-22 11:06] VITALS: BMI 35.7
[2018-06-22] MEDS ORDERED: Sodium Chloride 0.9% 1,000 ML IV ONE (12:36)
--- NOTE | 2018-06-22 13:06 | RAD ---
HISTORY: SOB COMPARISON: Chest x-ray performed 10/02/17 TECHNIQUE: Chest, one view. FINDINGS: Examination limited by habitus. LUNGS: No focal consolidation. Please note that chest x-ray has limited sensitivity for the detection of pulmonary masses. PLEURA: No significant pleural effusion identified. No definite pneumothorax . CARDIOVASCULAR: Cardiomegaly. Atherosclerotic calcification of the aorta present. OSSEOUS STRUCTURES: Degenerative changes of the spine VISUALIZED UPPER ABDOMEN: Unremarkable. OTHER FINDINGS: None. IMPRESSION: Cardiomegaly.
[2018-06-22] MEDS ORDERED: Sodium Chloride 0.9% 1,000 ML ONE (13:15)
[2018-06-22 13:22] LABS: BASO % 0.9 % (0.0-2.0); EOS # 0.2 K/uL (0.0-0.7); EOS % 3.8 % (0.0-4.0); LYMPH # 1.1 K/uL (1.0-4.3); LYMPH % 20.8 % (20.0-40.0); MEAN CORPUSCULAR HEMOGLOBIN 29.5 pg (27.0-31.0); MEAN CORPUSCULAR HGB CONC 33.6 g/dL (33.0-37.0); MEAN PLATELET VOLUME 7.4 fL (7.2-11.7); MONO # 0.6 K/uL (0.0-0.8); MONO % 12.3 % (0.0-10.0); NEUT # 3.3 K/uL (1.8-7.0); NEUT % 62.2 % (50.0-75.0); RBC 3.79 Mil/uL (4.40-5.90); WHITE BLOOD COUNT 5.2 K/uL (4.8-10.8)
[2018-06-22 13:23] LABS: HEMOGLOBIN 11.2 g/dL (12.0-18.0); MEAN CELL VOLUME 87.9 fL (80.0-94.0)
[2018-06-22 13:42] LABS: ALB/GLOB RATIO 1.4 (1.0-2.1); ALBUMIN 4.1 g/dL (3.5-5.0); ALT/SGPT 23 U/L (21-72); AST/SGOT 21 U/L (17-59); BLOOD UREA NITROGEN 13 mg/dL (9-20); CALCIUM 9.3 mg/dl (8.6-10.4); GFR NON-AFRICAN AMERICAN > 60
[2018-06-22 13:51] LABS: B-TYPE NATRIURETIC PEPTIDE 48.8 pg/mL (0-900)
--- NOTE | 2018-06-22 13:59 | C.PDOC ---
Time Seen by Provider: 06/22/18 12:20 Chief Complaint (Nursing): Headache Past Medical History Vital Signs: Last Vital Signs Temp 98.1 F 06/22/18 11:13 Pulse 76 06/22/18 11:13 Resp 17 06/22/18 11:13 BP 143/88 06/22/18 11:13 Pulse Ox 99 06/22/18 11:13 - Medical History PMH: Anemia, Arthritis, CAD, Colonic Polyps, Gastritis, Hiatal Hernia, HTN, Hypercholesterolemia Denies: Fractures, Chronic Kidney Disease Surgical History: Coronary Stent (PTCA/stent x4) Denies: Pacemaker - [facility] Procedures CORONAR ARTERIOGR-2 CATH (01/06/13) EXCISION OF STOMACH, ENDO, DIAGN (10/02/17) INSERTION OF ONE VASCULAR STENT (01/06/13) INSPECTION OF LOWER INTESTINAL TRACT, ENDO (10/02/17) INSRT OF DRUG-ELUTING CORON ARTERY STENTS(S) (01/06/13) LT HEART ANGIOCARDIOGRAM (01/06/13) PERCUTANEOUS TRANSLUMINAL CORONARY ANGIOPLASTY [PTCA] (01/06/13) PROCEDURE ON SINGLE VESSEL (01/06/13) RT/LEFT HEART CARD CATH (01/06/13) Family History: States: Unknown Family Hx - Social History Hx Alcohol Use: Yes Hx Substance Use: No - Immunization History Hx Tetanus Toxoid Vaccination: No Hx Influenza Vaccination: Yes Hx Pneumococcal Vaccination: Yes ED Course And Treatment - Laboratory Results Result Diagrams: 06/22/18 13:14 06/22/18 13:14 O2 Sat by Pulse Oximetry: 99 Disposition - Disposition Forms: [employer] (Afghan)
--- NOTE | 2018-06-22 14:05 | C.PDOC ---
History Of Present Illness 72 y/o male presents to the ER complaining of chronic pain to site of ventral hernia repair in abdomen. Patient is also complaining of mild headache. Patient states that he had vague chest pain yesterday, he does not have pain today. Denies having fever, chills, CP, SOB, nausea, and vomiting. Time Seen by Provider: 06/22/18 12:20 Chief Complaint (Nursing): Headache History Per: Patient History/Exam Limitations: no limitations Onset/Duration Of Symptoms: Days Current Symptoms Are (Timing): Still Present Severity: Moderate Past Medical History Reviewed: Historical Data, Nursing Documentation, Vital Signs Vital Signs: Last Vital Signs Temp 98.1 F 06/22/18 11:13 Pulse 76 06/22/18 11:13 Resp 17 06/22/18 11:13 BP 143/88 06/22/18 11:13 Pulse Ox 99 06/22/18 11:13 - Medical History PMH: Anemia, Arthritis, CAD, Colonic Polyps, Gastritis, Hiatal Hernia, HTN, Hypercholesterolemia Denies: Fractures, Chronic Kidney Disease Surgical History: Coronary Stent (PTCA/stent x4) Denies: Pacemaker - [facility] Procedures CORONAR ARTERIOGR-2 CATH (01/06/13) EXCISION OF STOMACH, ENDO, DIAGN (10/02/17) INSERTION OF ONE VASCULAR STENT (01/06/13) INSPECTION OF LOWER INTESTINAL TRACT, ENDO (10/02/17) INSRT OF DRUG-ELUTING CORON ARTERY STENTS(S) (01/06/13) LT HEART ANGIOCARDIOGRAM (01/06/13) PERCUTANEOUS TRANSLUMINAL CORONARY ANGIOPLASTY [PTCA] (01/06/13) PROCEDURE ON SINGLE VESSEL (01/06/13) RT/LEFT HEART CARD CATH (01/06/13) Family History: States: No Known Family Hx - Social History Hx Alcohol Use: Yes Hx Substance Use: No - Immunization History Hx Tetanus Toxoid Vaccination: No Hx Influenza Vaccination: Yes Hx Pneumococcal Vaccination: Yes Review Of Systems Except As Marked, All Systems Reviewed And Found Negative. Constitutional: Negative for: Fever, Chills Cardiovascular: Negative for: Chest Pain Respiratory: Negative for: Shortness of Breath Gastrointestinal: Positive for: Abdominal Pain. Negative for: Nausea, Vomiting Neurological: Positive for: Headache Physical Exam - Physical Exam Appears: No Acute Distress Skin: Normal Color, Warm, Dry Head: Atraumatic, Normacephalic Eye(s): bilateral: Normal Inspection Nose: Normal Oral Mucosa: Moist Neck: Supple Chest: Symmetrical, Tenderness (digitally reproducible tenderness in lower sternal region), Other (no rash) Cardiovascular: Rhythm Regular Respiratory: Normal Breath Sounds, No Rales, No Rhonchi, No Wheezing Gastrointestinal/Abdominal: Soft, No Guarding, No Rebound, Other (obese, midline surgical scar Y-shaped; hernia defect, right paramedian, non-reducible, mildly tender) Neurological/Psych: Oriented x3, Normal Speech ED Course And Treatment - Laboratory Results Result Diagrams: 06/22/18 13:14 06/22/18 13:14 Lab Interpretation: Normal ECG: Interpreted By [place] ECG Rhythm: Sinus Rhythm ECG Interpretation: Normal Rate From EC O2 Sat by Pulse Oximetry: 99 (RA) Pulse Ox Interpretation: Normal - Radiology CXR: Interpreted by [place] CXR Interpretation: Yes: No Acute Disease Reevaluation Time: 15:19 Reassessment Condition: Improved Medical Decision Making Medical Decision Making: Plan: --Labs --EKG --UA --CT-Abd & Pelv. --IV Fluids --Toradol IV constipation stable ventral abd hernia repair mild headache and chronic lower back pain controlled with NSAIDS Disposition Doctor Will See Patient In The: Office Counseled Patient/Family Regarding: Studies Performed, Diagnosis - Disposition Disposition: HOME/ ROUTINE Disposition Time: 15:19 Condition: GOOD Forms: [facility] (Faroese) - Clinical Impression Clinical Impression: Headache, Chronic low back pain, Abdominal pain, colicky
[2018-06-22] MEDS ORDERED: Iodixanol 320 MG/ML 100 ML BOTTLE IV ONE (14:17)
--- NOTE | 2018-06-22 15:14 | CT ---
Date of service: 06/22/2018 PROCEDURE: CT Abdomen and Pelvis with contrast HISTORY: ventral hernia, s/p repair COMPARISON: Abdomen pelvis CT with contrast 10/02/2017 TECHNIQUE: Contrast dose: Visipaque 320, 100 cc Radiation dose: Total exam DLP = 1187.82 mGy-cm. This CT exam was performed using one or more of the following dose reduction techniques: Automated exposure control, adjustment of the mA and/or kV according to patient size, and/or use of iterative reconstruction technique. FINDINGS: LOWER THORAX: Stable cardiomegaly. No pleural or pericardial effusion. LIVER: Tiny lucency is stable at the medial left lobe liver, approaching the dome. No additional focal abnormality seen throughout the remainder of the liver once again. GALLBLADDER AND BILE DUCTS: Unremarkable. PANCREAS: Unremarkable. No gross lesion or ductal dilatation. SPLEEN: Unremarkable. ADRENALS: Unremarkable. No mass. KIDNEYS AND URETERS: Cortical defect at the periphery of the midpole right kidney laterally reflecting chronic infarct once again. A stable sub cm lucency is unchanged at the mid to lower pole right kidney posteriorly. Stable unremarkable left kidney. No obstructive uropathy once again bilaterally. VASCULATURE: No aortic aneurysm. Minimal abdominal aortic atherosclerotic calcification identified. BOWEL: Evaluation of the gastrointestinal tract is limited due to the lack of oral contrast administration. Moderate retained fecal material scattered throughout various large-bowel segments once again. APPENDIX: Normal appendix. PERITONEUM: No mesenteric edema appreciated. No free fluid. No free air. Minimal prior umbilical hernia contains fat once again with post herniorrhaphy changes are reiterated immediately cephalad to the level of the umbilicus. There is a tiny right paracentral, ventral abdominal hernia identified containing only mesentery with the neck measuring 1.2 cm once again. LYMPH NODES: Unremarkable. No enlarged lymph nodes. BLADDER: Unremarkable. REPRODUCTIVE: Prostate gland enlargement reiterated. BONES: No acute fracture. OTHER FINDINGS: None. IMPRESSION: 1. No definitive acute abdominal findings. Prior small ventral abdominal hernia repair reiterated with minimal ventral abdominal hernia identified cephalad to it right parasagittal in position. A small amount of fat is involved with no bowel. Minimal umbilical hernia again identified, stable. 2. No acute abdominal or pelvic findings as discussed above. 3. Additional lesser findings as discussed above.
[2018-06-22 15:19] VITALS: BP 125/72; PULSE 68; RESP 18; TEMP 98.7
[2018-06-22 15:20] VITALS: O2SAT 99
== END 2018-06-22 15:45 | disposition home or self-care (01) ==
LOC: C.ER 11:06
DX: R10.84 Generalized abdominal pain (principal); R51 Headache; G89.29 Other chronic pain; M54.5 Low back pain
CPT/HCPCS: 71045; 74177; 80053; 83880; 84484; 85025; 96361; 96374; 99285; J1885; J7030; Q9967

== ENCOUNTER 2018-11-03 19:55 | Emergency (ER) | payer MEDICARE, OTHER ==
[2018-11-03 19:55] VITALS: BMI 35.7
[2018-11-03] MEDS ORDERED: Tramadol 25 mg PO STA (20:44)
[2018-11-03 21:51] LABS: SQUAMOUS EPITHIAL < 1 /hpf (0-5); URINE BILIRUBIN NEGATIVE (NEGATIVE); URINE BLOOD 3+ (NEGATIVE); URINE CALCIUM OXALATE CRYSTALS RARE /hpf (<OCC); URINE CLARITY Hazy (Clear); URINE COLOR Yellow (YELLOW); URINE GLUCOSE (UA) 2+ mg/dL (Normal); URINE HYALINE CAST 0-2 /lpf (0-2); URINE LEUKOCYTE ESTERASE NEG Leu/uL (Negative); URINE PROTEIN 2+ mg/dL (NEGATIVE); URINE UROBILINOGEN NORMAL mg/dL (0.2-1.0)
--- NOTE | 2018-11-03 22:38 | C.PDOC ---
History Of Present Illness 73 year old male presents with right lower back pain since yesterday that progressively worsened today. Patient states the pain is nonradiating and notes similar pain in the past. Denies trauma, urinary symptoms, abdominal pain, nausea, vomiting, weakness, numbness, or incontinence. Time Seen by Provider: 11/03/18 20:23 Chief Complaint (Nursing): Back Pain History Per: Patient History/Exam Limitations: no limitations Onset/Duration Of Symptoms: Days Current Symptoms Are (Timing): Still Present Quality Of Discomfort: Unable To Describe Previous Symptoms: None Associated Symptoms: None Recent travel outside of the [place]: No Past Medical History Reviewed: Historical Data, Nursing Documentation, Vital Signs Vital Signs: Last Vital Signs Temp 98.6 F 11/03/18 20:19 Pulse 94 H 11/03/18 20:19 Resp 18 11/03/18 20:19 BP 155/89 H 11/03/18 20:19 Pulse Ox 96 11/03/18 20:19 - Medical History PMH: Anemia, Arthritis, CAD, Colonic Polyps, Gastritis, Hiatal Hernia, HTN, Hypercholesterolemia Denies: Fractures, Chronic Kidney Disease Surgical History: Coronary Stent (PTCA/stent x4) Denies: Pacemaker - [facility] Procedures CORONAR ARTERIOGR-2 CATH (01/06/13) EXCISION OF STOMACH, ENDO, DIAGN (10/02/17) INSERTION OF ONE VASCULAR STENT (01/06/13) INSPECTION OF LOWER INTESTINAL TRACT, ENDO (10/02/17) INSRT OF DRUG-ELUTING CORON ARTERY STENTS(S) (01/06/13) LT HEART ANGIOCARDIOGRAM (01/06/13) PERCUTANEOUS TRANSLUMINAL CORONARY ANGIOPLASTY [PTCA] (01/06/13) PROCEDURE ON SINGLE VESSEL (01/06/13) RT/LEFT HEART CARD CATH (01/06/13) Family History: States: Unknown Family Hx - Social History Hx Alcohol Use: Yes Hx Substance Use: No - Immunization History Hx Tetanus Toxoid Vaccination: No Hx Influenza Vaccination: Yes Hx Pneumococcal Vaccination: No Review Of Systems Constitutional: Negative for: Fever, Chills Gastrointestinal: Negative for: Nausea, Vomiting, Abdominal Pain Genitourinary: Negative for: Dysuria, Incontinence, Hematuria Musculoskeletal: Positive for: Back Pain Neurological: Negative for: Weakness, Numbness Physical Exam - Physical Exam Appears: Non-toxic Skin: Normal Color, Warm, Dry Head: Atraumatic, Normacephalic Eye(s): bilateral: Normal Inspection Oral Mucosa: Moist Chest: Symmetrical, No Tenderness Cardiovascular: Rhythm Regular Respiratory: Normal Breath Sounds, No Rales, No Rhonchi, No Wheezing Gastrointestinal/Abdominal: Soft, No Tenderness, Hernia (reducible ventral), Other (Obese, mid umbilical scar) Back: CVA Tenderness (Right), No Vertebral Tenderness, Paraspinal Tenderness (Right lumbar) Neurological/Psych: Oriented x3, Normal Speech ED Course And Treatment - Laboratory Results Lab Results: Urine Color Yellow (YELLOW) 11/03/18 21:34 Urine Clarity Hazy (Clear) 11/03/18 21:34 Urine pH 5.0 (5.0-8.0) 11/03/18 21:34 Ur Specific [place] 1.020 (1.003-1.030) 11/03/18 21:34 Urine Protein 2+ mg/dL (NEGATIVE) H 11/03/18 21:34 Urine Glucose (UA) 2+ mg/dL (Normal) H 11/03/18 21:34 Urine Ketones Negative mg/dL (NEGATIVE) 11/03/18 21:34 Urine Blood 3+ (NEGATIVE) H 11/03/18 21:34 Urine Nitrate Negative (NEGATIVE) 11/03/18 21:34 Urine Bilirubin Negative (NEGATIVE) 11/03/18 21:34 Urine Urobilinogen Normal mg/dL (0.2-1.0) 11/03/18 21:34 Ur Leukocyte Esterase Neg Dejon/uL (Negative) 11/03/18 21:34 Urine WBC (Auto) 10 /hpf (0-5) H 11/03/18 21:34 Urine RBC (Auto) 389 /hpf (0-3) H 11/03/18 21:34 Ur Squamous Epith Cells < 1 /hpf (0-5) 11/03/18 21:34 Calcium Oxalate Crystal Rare /hpf (<OCC) 11/03/18 21:34 Hyaline Casts 0-2 /lpf (0-2) 11/03/18 21:34 Urine Yeast (Budding) Occ /hpf (NEGATIVE) H 11/03/18 21:34 O2 Sat by Pulse Oximetry: 96 (Room air) Pulse Ox Interpretation: Normal - Other Rad LS spine x-ray X-Ray: Interpreted by Me, Viewed By Me Interpretation: Moderate arthritic changes - CT Scan/US CT abd/pel Other Rad Studies (CT/US): Read By Radiologist, Radiology Report Reviewed CT/US Interpretation: EXAM: CT Abdomen and Pelvis without IV contrast. CLINICAL HISTORY: Rt flank pain. TECHNIQUE: Axial computed tomography images of the abdomen and pelvis without intravenous contrast. 0.00 mGy-cm. CONTRAST: Without. COMPARISON: None provided. FINDINGS: LUNG BASES: The lung bases appear clear. No pleural effusions are seen. LIVER: Hepatomegaly is noted. The liver measured an estimated 18.4 cm in the midclavicular line. GALLBLADDER AND BILE DUCTS: The gallbladder appears within normal limits. No radioopaque gallstones are seen. No biliary ductal dilatation is evident. PANCREAS: Unremarkable. SPLEEN: Unremarkable. ADRENAL GLANDS: Unremarkable. KIDNEYS, URETERS, AND BLADDER: Both kidneys are normal in size and position. There is mild right perinephric stranding noted. Additionally, mild right hydronephrosis and hydroureter are identified. These findings suggest recent migration of a right renal calculus which is identified within the urinary bladder. A 3.0 mm calculus is seen in the dependent lumen of the urinary bladder thought to have recently migrated from the right kidney. STOMACH AND BOWEL: Food debris and fluid causes mild distention of the stomach. No evidence of bowel obstruction. No evidence suggesting enteritis or colitis. APPENDIX: No evidence of acute appendicitis on CT examination. PERITONEUM: No free fluid. No free air. A small left inguinal hernia is present which contains fat. A supraumbilical ventral herniorrhaphy mesh is noted. Inferior to the ventral herniorrhaphy mesh, a small right paraumbilical hernia is present which contains fat. LYMPH NODES: No lymphadenopathy is evident. REPRODUCTIVE: The seminal vesicles appeared normal and symmetrical in size. There is prostatic hypertrophy noted. The prosstate gland measured 6.4 cm transversely. Some benign appearing left central zone calcifications are seen. VASCULATURE: No evidence of abdominal aortic aneurysm. Minor atherosclerotic vascular plaquing is present. BONES: No aggressive appearing osseous lesion. No acute osseous pathology evident. IMPRESSION: 1. Evidence of recent migration of a 3.0 mm calculus from the right kidney into the urinary bladder. There is minimal residual right hydronephrosis/hydroureter. 2. Hepatomegaly. 3. Mild distention of the stom ach with food debris and fluid. 4. A supraumbilical ventral herniorrhaphy mesh is present. 5. A small right paraumbilical hernia and left inguinal hernia are present which each contain fat. 6. Prostatic hypertrophy. Progress Note: Tramadol administered. LS spine x-ray showed moderate arthritic changes, UA showed postive blood. CT abd/pel ordered, results were positive for kidney stone. Patient reports improvement of pain, discussed CT results with patient, Rx given and discharged with instructions to follow up with urology. Disposition - Disposition Referrals: Jacob Esparza MD [Staff Provider] - Disposition: HOME/ ROUTINE Disposition Time: 00:03 Condition: STABLE Additional Instructions: Increase PO fluids Take medications as directed Follow up with Urologist Return to ER if worse Prescriptions: traMADol [Ultram] 50 mg PO TID #10 tab Instructions: Renal Colic (DC) Forms: [employer] (Moroccan) - Clinical Impression Clinical Impression: Renal colic on right side - PA / SCIENTIFIC HELPER / Resident Statement MD/DO has reviewed & agrees with the documentation as recorded. - Scribe Statement The provider has reviewed the documentation as recorded by the Scribneftali Hinds All medical record entries made by the Scribneftali were at my direction and personally dictated by me. I have reviewed the chart and agree that the record accurately reflects my personal performance of the history, physical exam, med [facility] decision making, and the department course for this patient. I have also personally directed, reviewed, and agree with the discharge instructions and disposition.
[2018-11-04 00:21] VITALS: BP 140/80; PULSE 80; RESP 14; TEMP 98
[2018-11-04 00:52] VITALS: O2SAT 96
--- NOTE | 2018-11-04 10:58 | CT ---
PROCEDURE: CT Abdomen and Pelvis without Oral or IV contrast. HISTORY: Rt flank pain COMPARISON: CT abdomen and pelvis with IV contrast performed 06/22/18 TECHNIQUE: Contiguous axial images of the abdomen and pelvis. No oral or IV contrast administered. Coronal and Sagittal reformats generated and reviewed. Radiation dose: Total exam DLP = 952.43 mGy-cm. This CT exam was performed using one or more of the following dose reduction techniques: Automated exposure control, adjustment of the mA and/or kV according to patient size, and/or use of iterative reconstruction technique. FINDINGS: There is limited evaluation of the solid organs without the administration of IV contrast. LOWER THORAX: No visible consolidation, pleural effusion, or pneumothorax. LIVER: Too small to characterize 4 mm hepatic dome hypodensity; statistically likely cyst or hemangioma. GALLBLADDER AND BILE DUCTS: Unremarkable unenhanced appearance. PANCREAS: Unremarkable unenhanced appearance. SPLEEN: Unremarkable unenhanced appearance. ADRENALS: Unremarkable unenhanced appearance. KIDNEYS AND URETERS: 3 mm calcification is noted in the urinary bladder presumably recently passed calculus. Urinary bladder appears mildly thick-walled. Mild fullness of the right ureter. No obstructing calculus evident within bilateral renal collecting systems. BLADDER: See above. REPRODUCTIVE: The prostate gland measures approximately 5.8 x 6.7 cm. APPENDIX: The appendix appears within normal limits of caliber. No secondary signs of acute appendicitis. BOWEL: The stomach is nondistended. Lack of oral contrast limits evaluation for bowel pathology. The bowel loops appear within normal limits of caliber without evidence of intestinal obstruction. PERITONEUM: No significant free fluid. No definite free air. LYMPH NODES: No bulky lymphadenopathy identified. VASCULATURE: Atherosclerotic calcifications of the aorta and branches. No aortic aneurysm. BONES: Degenerative changes of the spine. OTHER FINDINGS: Small left greater than right fat containing inguinal hernias. 7 mm fat containing ventral hernia. Supraumbilical ventral hernia mesh. IMPRESSION: Evidence of recently passed 3 mm calculus into the urinary bladder with minimal residual fullness of the right ureter. Mildly thick-walled urinary bladder; correlate with urinalysis. Heterogeneous enlarged prostate gland. Recommend correlation with PSA. Additional findings as above. Preliminary impression was provided by Flayr
--- NOTE | 2018-11-04 12:22 | RAD ---
Date of service: 11/03/2018 PROCEDURE: Radiographs of the Lumbar Spine. HISTORY: low back apin, no trauma COMPARISON: No prior. FINDINGS: BONES: There is mild dextrocurvature in the lumbar spine. There is normal alignment of the lumbar vertebral bodies. There is no acute fracture or spondylolysis. Bone mineralization is normal. DISC SPACES: There are multilevel degenerative changes with anterior osteophytes and reduced disc heights and multilevel facet arthropathy, worse at L4-5. OTHER FINDINGS: None. IMPRESSION: No acute fracture or spondylolysis. Multilevel degenerative disc disease, worse at L4-5.
== END 2018-11-04 00:21 | disposition home or self-care (01) ==
LOC: C.ER 19:55
DX: N13.2 Hydronephrosis with renal and ureteral calculous obstruction (principal)

== ENCOUNTER 2018-12-17 10:57 | Emergency (ER) | payer MEDICARE, OTHER ==
[2018-12-17 10:58] VITALS: BMI 35.7
[2018-12-17 11:05] VITALS: BP 115/72; PULSE 68; RESP 16; TEMP 97.8; O2SAT 98
--- NOTE | 2018-12-17 11:51 | C.PDOC ---
History Of Present Illness 73 year old male presents to the ED complaining of sudden onset left sided neck pain that began upon waking up yesterday. Reports pain radiates to the back of his head. States neck pain is worse when he moves head. States he has been taking OTC medications with no relief. Denies nausea, vomiting, fever, chills, weakness, numbness, tingling, abdominal pain, chest pain, SOB, or n/v/d, Time Seen by Provider: 12/17/18 10:59 Chief Complaint (Nursing): Headache History Per: Patient History/Exam Limitations: no limitations Onset/Duration Of Symptoms: Days (1), Intermittent Episodes Current Symptoms Are (Timing): Still Present Quality: "Pain" Associated Symptoms: denies: Vomiting, Extremity Weakness Past Medical History Reviewed: Historical Data, Nursing Documentation, Vital Signs Vital Signs: Last Vital Signs Temp 97.8 F 12/17/18 11:02 Pulse 68 12/17/18 11:02 Resp 16 12/17/18 11:02 BP 115/72 12/17/18 11:02 Pulse Ox 98 12/17/18 11:02 - Medical History PMH: Anemia, Arthritis, CAD, Colonic Polyps, Gastritis, Hiatal Hernia, HTN, Hypercholesterolemia Denies: Fractures, Chronic Kidney Disease Surgical History: Coronary Stent (PTCA/stent x4) Denies: Pacemaker - [facility] Procedures CORONAR ARTERIOGR-2 CATH (01/06/13) EXCISION OF STOMACH, ENDO, DIAGN (10/02/17) INSERTION OF ONE VASCULAR STENT (01/06/13) INSPECTION OF LOWER INTESTINAL TRACT, ENDO (10/02/17) INSRT OF DRUG-ELUTING CORON ARTERY STENTS(S) (01/06/13) LT HEART ANGIOCARDIOGRAM (01/06/13) PERCUTANEOUS TRANSLUMINAL CORONARY ANGIOPLASTY [PTCA] (01/06/13) PROCEDURE ON SINGLE VESSEL (01/06/13) RT/LEFT HEART CARD CATH (01/06/13) Family History: States: No Known Family Hx - Social History Hx Alcohol Use: Yes Hx Substance Use: No - Immunization History Hx Tetanus Toxoid Vaccination: No Hx Influenza Vaccination: Yes Hx Pneumococcal Vaccination: No Review Of Systems Except As Marked, All Systems Reviewed And Found Negative. Constitutional: Negative for: Fever, Chills Cardiovascular: Negative for: Chest Pain Respiratory: Negative for: Shortness of Breath Gastrointestinal: Negative for: Nausea, Vomiting, Abdominal Pain, Diarrhea Musculoskeletal: Positive for: Neck Pain Neurological: Negative for: Weakness, Numbness Physical Exam - Physical Exam Appears: Non-toxic, No Acute Distress Skin: Warm, Dry, No Rash Head: Normacephalic Eye(s): bilateral: Normal Inspection Nose: Normal Oral Mucosa: Moist Neck: Trachea Midline, No Midline Cervical Tenderness, Paracervical Tenderness (left sided ), Supple, Other (Mild spasm to left trapezius muscle, positive tenderness with turning head to left side ) Chest: Symmetrical Cardiovascular: Rhythm Regular Respiratory: Normal Breath Sounds, No Rales, No Rhonchi, No Wheezing Gastrointestinal/Abdominal: Soft, No Tenderness Back: Normal Inspection, No Vertebral Tenderness, No Paraspinal Tenderness Extremity: Bilateral: Atraumatic, Normal Color And Temperature, Normal ROM Neurological/Psych: Oriented x3, Normal Speech, Normal Motor, Normal Sensation Gait: Steady ED Course And Treatment O2 Sat by Pulse Oximetry: 98 (RA) Pulse Ox Interpretation: Normal Medical Decision Making Medical Decision Making: Plan - Flexeril 10mg PO - Toradol 15mg IM - Lidoderm 1 TD On re-examination, patient is resting comfortably in no acute distress. Patient reports improvement of symptoms. Patient feels comfortable going home and will be discharged. Patient given follow up instructions. Instructed to return to ER if symptoms worsen or new symptoms arise. Disposition - Disposition Referrals: Ed Best MD [Non-Staff] - Disposition: HOME/ ROUTINE Disposition Time: 12:21 Condition: GOOD Additional Instructions: Follow up within 1-2 days. Return if worsened. Prescriptions: Cyclobenzaprine [Flexeril] 5 mg PO TID #21 tab Lidocaine 5% [Lidoderm] 1 each TP DAILY #10 patch Naproxen 375 mg PO BID #20 tablet Instructions: Torticollis (DC) Forms: [employer] (Malay) - Clinical Impression Clinical Impression: Torticollis - PA / RADIAGRAPH OPERATOR / Resident Statement MD/DO has reviewed & agrees with the documentation as recorded. - Scribe Statement The provider has reviewed the documentation as recorded by the Scribe Melly Brown All medical record entries made by the Scribe were at my direction and personally dictated by me. I have reviewed the chart and agree that the record accurately reflects my personal performance of the history, physical exam, medical decision making, and the department course for this patient. I have also personally directed, reviewed, and agree with the discharge instructions and disposition.
[2018-12-17] MEDS ORDERED: Lidocaine 5% Patch TD STA (11:53)
[2018-12-17] MEDS ORDERED: Lidocaine 5% Patch TD ONE (12:00)
== END 2018-12-17 12:33 | disposition home or self-care (01) ==
LOC: C.ER 10:57
DX: M43.6 Torticollis (principal)
CPT/HCPCS: 96372; 99283; J1885